=== PATIENT | male | born 1985 | race Caucasian/White ===

== ENCOUNTER 2023-09-10 12:45 | Outpatient (AMB) | payer MEDICARE, MEDICAID, SELFPAY ==
[2023-09-10 12:55] VITALS: BMI 43.6
--- NOTE | 2023-09-10 12:55 | A.OFFVIS_ITS ---
Intake VS Expanded 09/10/23 12:55 09/19/23 12:56 Height 5 ft 9 in 5 ft 9 in Weight 294 lb 15.656 oz 295 lb BMI 43.6 43.6 Intake Visit Reasons: Obesity, DM Allergies cat dander [CATS] Allergy (Unknown, Unverified 07/27/20 17:35) RASH HPI Nutrition Presentation Details Pt present for MNT for T2DM and obesity. The Pt reports he was referred by ARABELLA Rosen from [facility]. Pt reports he has T2DM and is on metformin . Pt reports he is on the highest dose. 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., Pt reports that in the past he was trying very low carb diets for a short period of time but in general he wants to make healthier food choices and learn to balance meals Beverages: tea/soda/juices Typical meal b: waffles, fruits or almond , walnuts/dates/seed, black coffee or with cream and sugar, apple juice L: 2 x banquet frozen dinner or McChicken mc donalds, orange soda or chefboyardeee 1- 4 or up to 7 pm works dinner: patties chicken breast with peanut butter, sloppy randi or lasagna , or Cesear salad with chicken , soda physical activity: daily life activities ETOH: some smoking denies BG record: 14 d bg average at 190, Pt monitoring in the fasting state, lowest bg at 174 and highest at 250 WZH-Zamtcbi-Kq.Jeor Equation Height 5 ft 9 in Weight 295 lb Resting Metabolic Rate 2245.25 Calculated Activity Level Sedentary Calories Needed to Maintain Weight 2694.30 Diagnosis Nutrition problem #1 excessive energy intake As related to (etiology) #1 diagnosis As evidenced by (sign/symptom) #1 food recall and knowledge deficit of diet Monitoring/Goals Nutrition problem monitoring level of knowledge/skill, total CHO intake and weight Nutrition goal/outcome list 3 CHO foods and wt loss 5lbs in 2 months Outcome progress verbalized understanding Learning/Education Readiness to learn good Stages of change preparation Educational materials provided Yes (meal planning/healthy plate method) Most Recent Diabetes Results: No Data to Display Assessment & Plan Assessment & Plan (1) Morbid obesity with BMI of 45.0-49.9, adult: Code(s): E66.01 - Morbid (severe) obesity due to excess calories; Z68.42 - Body mass index [BMI] 45.0-49.9, adult Plan: wt: 134 kg Est kcal needs as per MSJ: 2700 (40% carb, 30% protein/fat) Est fluid needs as per 25-30 ml/d: 1184-8817 Est prot per day as per 1 g/kg bw: 134 Recommend fiber intake : 8-10 g per day and gradually increase to 25-28 g per day for women and 35-38 g for men or as tolerated Recommend sodium intake per day : less than 2000 mg Educated patient on: ( R = reviewed V = verbalizes understanding N/R = needs review N/A = not applicable * Food sources of carbohydrate, adequate serving sizes and its role in various health conditions: R * Differences between complex carbohydrates a simple carbohydrates, role of fiber in diet: R * lean protein foods: R * Differences between types of fats and role in diet (mono on saturated fat fatty acids, saturated fatty acids, trans fats): R basic * Food sources of sodium in salt and healthy modifications for heart health in kidney health: NR * Vitamins and minerals: R * Healthy plate method concept: R * Physical activity: Benefits a precaution: R * Hypoglycemia protocol (rule of 15): NR * Dietary prevention of Hyperglycemia: R Patient Instructions: Reduce on total carb to less than 90 g at a meal Have no sugar containing beverages Abstain from alcohol consumption monitor your blood sugar 2 hours after your last meal Coding Level of Care Code Nutr Indiv Intake (86840) Diagnoses Morbid obesity with BMI of 45.0-49.9, adult E66.01; Z68.42 Time Spent (min) 30
[2023-09-19 12:56] VITALS: BMI 43.6
== END 2023-09-10 13:46 | disposition home or self-care (01) ==
PROVIDERS: PCP Internal Medicine; Visit Provider Dietitian, Registered
DX: E66.01 Morbid (severe) obesity due to excess calories (principal); Z68.42 Body mass index [BMI] 45.0-49.9, adult

== ENCOUNTER → 2023-09-10 12:45 | Outpatient (BNVA) | payer MEDICARE, MEDICAID, SELFPAY | PROVIDERS: PCP Internal Medicine; Visit Provider Dietitian, Registered | DX: E66.01 Morbid (severe) obesity due to excess calories (principal); Z68.41 Body mass index [BMI] 40.0-44.9, adult; E11.9 Type 2 diabetes mellitus without complications; Z71.3 Dietary counseling and surveillance | CPT/HCPCS: 97802 ==

== ENCOUNTER 2024-09-29 00:35 | Emergency (ER) | payer MEDICARE, MEDICAID, SELFPAY ==
[2024-09-29 00:39] VITALS: BP 149/100; PULSE 92; RESP 20; TEMP 36.4; O2SAT 97; BMI 44.3
[2024-09-29 01:35] LABS: Alanine Aminotransferase 58 U/L (0-40); Albumin Level 4.7 g/dL (3.5-5.0); Alkaline Phosphatase 98 U/L (39-117); Anion Gap 18 (12-20); Aspartate Amino Transferase 44 U/L (5-37); Bilirubin Total 0.3 mg/dL (0.0-1.0); Blood Urea Nitrogen 9 mg/dL (9-16); Calcium 10.3 mg/dL (8.4-10.2); Carbon Dioxide 22 mmol/L (22-29); Chloride 100 mmol/L (96-108); Creatinine Clr Calc Pharmacy 152.8; Estimated Glomerular Filt Rate > 60; Ethanol < 10 mg/dL; Glucose Random 261 mg/dL (60-115); Sodium 136 mmol/L (135-145); Total Protein 7.8 g/dL (6.5-8.0)
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
--- NOTE | 2024-09-29 01:44 | ED.GENADULT ---
HPI - General Adult General Chief complaint: General Medical Stated complaint: lower back pain Time Seen by Provider: 09/29/24 01:36 Source: patient Mode of arrival: ambulatory Limitations: no limitations History of Present Illness ED Provider: sanaz MIRANDA narrative: Patient's history of schizophrenia disorder, OCD, depression, anxiety increased stress with chronic low back pain comes here with multiple problems including back pain and asking for help for his increased emotional stress and the back pain no recent injury no radiation of the pain to the lower extremity no bladder or bowel involvement Related Data Allergies Allergy/AdvReac Type Severity Reaction Status Date / Time cat dander [CATS] Allergy Unknown RASH Verified 09/29/24 00:44 Review of Systems Review of Systems: Yes all other systems are reviewed and are negative [facility] Social History Social History Alcohol intake: current Alcohol intake frequency: holidays/special occasions only Smoked in Last 30 Days: No Use of substances other than those prescribed or required for medical reasons: No Advance Directives: No Physical Exam ED Vital Signs: Vital Signs - 24 hr 09/29/24 00:39 Temperature 97.5 F Pulse Rate 92 Respiratory Rate 20 Blood Pressure 149/100 H Pulse Oximetry 97 Oxygen Delivery Method Room Air BMI result Body Mass Index 44.3 Appearance: Alert. Oriented X3. No acute distress. Eyes: PERRLA, No Nystagmus ENT: Pharynx normal. Oral Mucosa moist Neck: Normal inspection. Neck supple. CVS: Normal heart rate and rhythm. Pulses normal. Respiratory: No respiratory distress. Equal air entry bilateral, no wheezing/rales/rhonchi Abdomen: Soft and nontender. Bowel sounds are present, no mass palpable, no CVA tenderness Skin: Skin warm and dry. Normal skin color. Normal skin turgor. Extremities: No lower extremity edema. No calf tenderness psych: Feel depressed stressed out no current suicidal or homicidal ideation Neuro: Oriented X 3. No motor deficit. No sensory deficit.No cerebellar signs , cranial nerves II-XII intact Medications Administered Discontinued Medications Generic Name Dose Route Start Last Admin Trade Name Freq PRN Reason Stop Dose Admin Ibuprofen 600 mg 09/29/24 01:43 09/29/24 02:48 Ibuprofen 600 Mg Tablet PO 09/29/24 01:44 600 mg ONCE ONE Administration Lorazepam 2 mg 09/29/24 01:43 09/29/24 02:48 Lorazepam 1 Mg Tablet PO 09/29/24 01:44 2 mg ONCE ONE Administration Medical Decision Making Medical Decision Making MDM Narrative: Patient has schizoaffective disorder with depression increased stress will get care team involved for evaluation Lab Data [facility] Lab Attestation statement: I reviewed the patient's lab results. 09/29/24 01:39 09/29/24 01:08 Labs: Lab Results 09/29/24 09/29/24 09/29/24 Range/Units 01:08 01:13 01:39 WBC 9.3 (4.8-10.8) X10*3/uL RBC 4.77 (4.60-5.80) X10*6/uL Hgb 14.1 (14.0-18.0) g/dl Hct 39.1 L (42.0-52.0) % MCV 82.0 (80.0-98.0) fL MCH 29.6 (27.0-33.0) pg MCHC 36.1 H (31.0-36.0) g/dl RDW 12.4 (11.0-16.0) % Plt Count 252 (160-400) X10*3/uL MPV 9.6 (9.4-12.4) fL Immature Gran % (Auto) 1.7 H (0.0-0.4) % Neut % (Auto) 51.1 (45-73) % Lymph % (Auto) 37.9 (20-40) % [place] % (Auto) 6.1 (2-11) % Eos % (Auto) 2.8 (0-4) % Baso % (Auto) 0.4 (0-2) % Lymph # (Auto) 3.5 (1.2-4.9) X10*3/uL [place] # (Auto) 0.6 (0.1-1.2) X10*3/uL Eos # (Auto) 0.3 (0.0-0.4) X10*3/uL Baso # (Auto) 0.0 (0.0-0.2) X10*3/uL Abs Immat Gran (auto) 0.16 H (0.00-0.03) X10*3/uL Absolute Neuts (auto) 4.7 (2.0-8.3) x10*3/uL Absolute Nucleated RBC 0.000 (0.0-0.012) X10*3/uL Nucleated RBC % (auto) 0.0 (0.0-0.2) /100WBC Sodium 136 (135-145) mmol/L Potassium 4.0 (3.3-5.1) mmol/L Chloride 100 (96-108) mmol/L Carbon Dioxide 22 (22-29) mmol/L Anion Gap 18 (12-20) BUN 9 (9-16) mg/dL Creatinine 0.88 (0.5-1.4) mg/dL Estim Creat Clear Calc 152.8 Estimated GFR > 60 POC Glucose (60-115) mg/dL Random Glucose 261 H (60-115) mg/dL Calcium 10.3 H (8.4-10.2) mg/dL Total Bilirubin 0.3 (0.0-1.0) mg/dL AST 44 H (5-37) U/L ALT 58 H (0-40) U/L Alkaline Phosphatase 98 (39-117) U/L Total Protein 7.8 (6.5-8.0) g/dL Albumin 4.7 (3.5-5.0) g/dL Urine Color Yellow Urine Appearance Clear Urine pH 6.0 (5.0-9.0) Ur Specific [place] >= 1.030 H (1.005-1.025) Urine Protein 30 (1+) H (Neg-Trace) mg/dL Urine Glucose (UA) >=1000 H (Negative) mg/dL Urine Ketones Trace (Negative) mg/dL Urine Blood Negative (Negative) Urine Nitrite Negative (Negative) Ur Leukocyte Esterase Negative (Negative) Urine RBC 0-2 (0-2) /HPF Urine WBC 0-5 (0-5) /HPF Ur Squamous Epith Cells 0-2 (0-2) /HPF Calcium Oxalate Crystal Present Urine Bacteria None Seen (None Seen) Hyaline Casts 0-2 (0-2) /LPF Urine Opiates Screen Not Detected (Not Detect) Ur Buprenorphine Scrn Not Detected (Not Detect) ng/mL Ur Oxycodone Screen Not Detected (Not Detect) ng/mL Urine Methadone Screen Not Detected (Not Detect) ng/mL Urine Fentanyl Screen Not Detected (Not Detect) Ur Barbiturates Screen Not Detected (Not Detect) Ur Phencyclidine Scrn Not Detected (Not Detect) Ur Amphetamines Screen Not Detected (Not Detect) U Benzodiazepines Scrn Not Detected (Not Detect) Urine Cocaine Screen Not Detected (Not Detect) U Marijuana (THC) Screen Not Detected (Not Detect) Ethyl Alcohol < 10 mg/dL 09/29/24 Range/Units 04:44 WBC (4.8-10.8) X10*3/uL RBC (4.60-5.80) X10*6/uL Hgb (14.0-18.0) g/dl Hct (42.0-52.0) % MCV (80.0-98.0) fL MCH (27.0-33.0) pg MCHC (31.0-36.0) g/dl RDW (11.0-16.0) % Plt Count (160-400) X10*3/uL MPV (9.4-12.4) fL Immature Gran % (Auto) (0.0-0.4) % Neut % (Auto) (45-73) % Lymph % (Auto) (20-40) % [place] % (Auto) (2-11) % Eos % (Auto) (0-4) % Baso % (Auto) (0-2) % Lymph # (Auto) (1.2-4.9) X10*3/uL [place] # (Auto) (0.1-1.2) X10*3/uL Eos # (Auto) (0.0-0.4) X10*3/uL Baso # (Auto) (0.0-0.2) X10*3/uL Abs Immat Gran (auto) (0.00-0.03) X10*3/uL Absolute Neuts (auto) (2.0-8.3) x10*3/uL Absolute Nucleated RBC (0.0-0.012) X10*3/uL Nucleated RBC % (auto) (0.0-0.2) /100WBC Sodium (135-145) mmol/L Potassium (3.3-5.1) mmol/L Chloride (96-108) mmol/L Carbon Dioxide (22-29) mmol/L Anion Gap (12-20) BUN (9-16) mg/dL Creatinine (0.5-1.4) mg/dL Estim Creat Clear Calc Estimated GFR POC Glucose 219 H (60-115) mg/dL Random Glucose (60-115) mg/dL Calcium (8.4-10.2) mg/dL Total Bilirubin (0.0-1.0) mg/dL AST (5-37) U/L ALT (0-40) U/L Alkaline Phosphatase (39-117) U/L Total Protein (6.5-8.0) g/dL Albumin (3.5-5.0) g/dL Urine Color Urine Appearance Urine pH (5.0-9.0) Ur Specific [place] (1.005-1.025) Urine Protein (Neg-Trace) mg/dL Urine Glucose (UA) (Negative) mg/dL Urine Ketones (Negative) mg/dL Urine Blood (Negative) Urine Nitrite (Negative) Ur Leukocyte Esterase (Negative) Urine RBC (0-2) /HPF Urine WBC (0-5) /HPF Ur Squamous Epith Cells (0-2) /HPF Calcium Oxalate Crystal Urine Bacteria (None Seen) Hyaline Casts (0-2) /LPF Urine Opiates Screen (Not Detect) Ur Buprenorphine Scrn (Not Detect) ng/mL Ur Oxycodone Screen (Not Detect) ng/mL Urine Methadone Screen (Not Detect) ng/mL Urine Fentanyl Screen (Not Detect) Ur Barbiturates Screen (Not Detect) Ur Phencyclidine Scrn (Not Detect) Ur Amphetamines Screen (Not Detect) U Benzodiazepines Scrn (Not Detect) Urine Cocaine Screen (Not Detect) U Marijuana (THC) Screen (Not Detect) Ethyl Alcohol mg/dL Discharge Plan Discharge Clinical Impression: Schizoaffective disorder, Major depression Patient Disposition: Still a Patient Print Language: St Helen[place]
[2024-09-29 01:45] LABS: Basophils Percent Auto 0.4 % (0-2); Eosinophils Absolute Auto 0.3 X10*3/uL (0.0-0.4); Eosinophils Percent Auto 2.8 % (0-4); Hematocrit 39.1 % (42.0-52.0); Hemoglobin 14.1 g/dl (14.0-18.0); Imm Gran Abs Auto 0.16 X10*3/uL (0.00-0.03); Imm Gran Pct Auto 1.7 % (0.0-0.4); Lymphocytes Absolute Auto 3.5 X10*3/uL (1.2-4.9); Lymphocytes Percent Auto 37.9 % (20-40); Mean Corpuscular HGB Conc 36.1 g/dl (31.0-36.0); Mean Corpuscular Hemoglobin 29.6 pg (27.0-33.0); Mean Platelet Volume 9.6 fL (9.4-12.4); Monocytes Absolute Auto 0.6 X10*3/uL (0.1-1.2); Monocytes Percent Auto 6.1 % (2-11); Neutrophils Absolute Auto 4.7 x10*3/uL (2.0-8.3); Neutrophils Percent Auto 51.1 % (45-73); Platelet Count 252 X10*3/uL (160-400); Red Blood Count 4.77 X10*6/uL (4.60-5.80); Red Cell Distribution Width 12.4 % (11.0-16.0); White Blood Count 9.3 X10*3/uL (4.8-10.8)
[2024-09-29 01:46] LABS: Appearance Urine Clear; Color Urine Yellow; Glucose Urine UA >=1000 mg/dL (Negative); Leukocyte Esterase Urine Negative (Negative); Nitrite Urine Negative (Negative); Specific Gravity - Urine >= 1.030 (1.005-1.025); UMIC TRIGGER UACC YES; Urine Blood Negative (Negative); Urine Ketones Trace mg/dL (Negative); Urine Protein 30 (1+) mg/dL (Neg-Trace)
[2024-09-29 01:52] LABS: MANUAL DIFF FLAG NO
[2024-09-29 01:58] LABS: Amphetamine Screen Urine Not Detected (Not Detect); Barbiturates, Urine Not Detected (Not Detect); Benzodiazepines Screen Urine Not Detected (Not Detect); Buprenorphine Scr Not Detected (Not Detect); Cannabinoid Screen Urine Not Detected (Not Detect); Cocaine Screen Urine Not Detected (Not Detect); Fentanyl, urine Not Detected (Not Detect); Methadone Screen, Urine Not Detected (Not Detect); Opiate Screen Urine Not Detected (Not Detect); Oxycodone Screen Urine Not Detected (Not Detect); Phencyclidine Screen Urine Not Detected (Not Detect)
[2024-09-29 02:03] LABS: Bacteria Urine None Seen (None Seen); Calcium Oxalate Crystals Urine Present; Hyaline Casts Urine 0-2 /LPF (0-2); RBC Urine 0-2 /HPF (0-2); Squamous Epithelial Cell Urine 0-2 /HPF (0-2); WBC Urine 0-5 /HPF (0-5)
--- NOTE | 2024-09-29 02:44 | PC.NURSE ---
PT is unsure of his medications including names and dosag. He reports he has a visiting nurse daily to administer morning meds and pack night meds. PT is unsure of the company, but is supported by [facility] through [facility].
[2024-09-29] MEDS: LORazepam 1 MG TABLET 2 MG PO (02:48)
[2024-09-29] MEDS: Ibuprofen 600 MG TABLET PO (02:48)
[2024-09-29 04:47] LABS: Glucose, Whole Blood 219 mg/dL (60-115)
[2024-09-29 08:00] VITALS: BP 150/102; PULSE 97; RESP 16; TEMP 37.1; O2SAT 98
--- NOTE | 2024-09-29 08:43 | PC.NURSE ---
patient is awake and alert, ate breakfast this morning, talked with staff. patient ambulates with steady gait. patient is polite and calm, resting quietly in room
== END 2024-09-29 10:57 | disposition home or self-care (01) ==
PROVIDERS: Emergency Provider Internal Medicine; PCP Internal Medicine
DX: F32.3 Major depressive disorder, single episode, severe with psychotic features (principal); F41.9 Anxiety disorder, unspecified; M54.50 Low back pain, unspecified; Z73.3 Stress, not elsewhere classified; Z79.899 Other long term (current) drug therapy
CPT/HCPCS: 36415; 80053; 80307; 81001; 82947; 85025; 99285; S9485

== ENCOUNTER 2025-01-18 22:34 | Inpatient (IN) | payer MEDICARE, MEDICAID, SELFPAY ==
[2025-01-18 22:43] VITALS: BP 123/80; BP 138/88; PULSE 111; PULSE 120; RESP 18; TEMP 36.4; O2SAT 96; BMI 35.9
[2025-01-18 23:11] LABS: Appearance Urine Clear; Color Urine Yellow; Glucose Urine UA >=1000 mg/dL (Negative); Leukocyte Esterase Urine Negative (Negative); Nitrite Urine Negative (Negative); Specific Gravity - Urine >= 1.030 (1.005-1.025); UMIC TRIGGER UACC YES; Urine Blood Negative (Negative); Urine Ketones 15 mg/dL (Negative); Urine Protein Negative (Neg-Trace)
[2025-01-18 23:16] LABS: Bacteria Urine None Seen (None Seen); Hyaline Casts Urine 0-2 /LPF (0-2); RBC Urine 0-2 /HPF (0-2); Squamous Epithelial Cell Urine 0-2 /HPF (0-2); WBC Urine 0-5 /HPF (0-5)
[2025-01-18 23:25] LABS: Amphetamine Screen Urine Not Detected (Not Detect); Barbiturates, Urine Not Detected (Not Detect); Benzodiazepines Screen Urine Not Detected (Not Detect); Buprenorphine Scr Not Detected (Not Detect); Cannabinoid Screen Urine Not Detected (Not Detect); Cocaine Screen Urine Not Detected (Not Detect); Fentanyl, urine Not Detected (Not Detect); Methadone Screen, Urine Not Detected (Not Detect); Opiate Screen Urine Not Detected (Not Detect); Oxycodone Screen Urine Not Detected (Not Detect); Phencyclidine Screen Urine Not Detected (Not Detect)
[2025-01-18 23:28] LABS: MANUAL DIFF FLAG NO
[2025-01-18 23:29] LABS: Basophils Percent Auto 0.4 % (0-2); Eosinophils Absolute Auto 0.2 X10*3/uL (0.0-0.4); Eosinophils Percent Auto 2.1 % (0-4); Hematocrit 40.6 % (42.0-52.0); Hemoglobin 14.8 g/dl (14.0-18.0); Lymphocytes Absolute Auto 3.4 X10*3/uL (1.2-4.9); Lymphocytes Percent Auto 33.8 % (20-40); Mean Corpuscular HGB Conc 36.5 g/dl (31.0-36.0); Mean Corpuscular Hemoglobin 29.7 pg (27.0-33.0); Mean Corpuscular Volume 81.4 fL (80.0-98.0); Mean Platelet Volume 9.3 fL (9.4-12.4); Monocytes Absolute Auto 0.6 X10*3/uL (0.1-1.2); Monocytes Percent Auto 6.1 % (2-11); Neutrophils Absolute Auto 5.7 x10*3/uL (2.0-8.3); Neutrophils Percent Auto 56.6 % (45-73); Platelet Count 244 X10*3/uL (160-400); Red Blood Count 4.99 X10*6/uL (4.60-5.80); White Blood Count 10.1 X10*3/uL (4.8-10.8)
[2025-01-18 23:46] LABS: Alanine Aminotransferase 53 U/L (0-40); Albumin Level 4.6 g/dL (3.5-5.0); Alkaline Phosphatase 92 U/L (39-117); Anion Gap 17 (12-20); Aspartate Amino Transferase 35 U/L (5-37); Bilirubin Total 0.4 mg/dL (0.0-1.0); Blood Urea Nitrogen 10 mg/dL (9-16); Calcium 9.9 mg/dL (8.4-10.2); Carbon Dioxide 18 mmol/L (22-29); Chloride 105 mmol/L (96-108); Estimated Glomerular Filt Rate > 60; Ethanol < 10 mg/dL; Glucose Random 207 mg/dL (60-115); Potassium 3.9 mmol/L (3.3-5.1); Sodium 136 mmol/L (135-145); Total Protein 7.7 g/dL (6.5-8.0)
--- NOTE | 2025-01-19 | ECG_ITS ---
Test Reason : rule out prolonged QTC Blood Pressure : */* mmHG Vent. Rate : 101 BPM Atrial Rate : 101 BPM P-R Int : 160 ms QRS Dur : 82 ms QT Int : 352 ms P-R-T Axes : 48 -22 16 degrees QTcB Int : 456 ms Sinus tachycardia Otherwise normal ECG When compared with ECG of 08-Jan-2010 11:14, No significant changes seen Referred By: Joanne Hernandez Electronically Signed By: CHANDLER ARTEAGA
[2025-01-19 00:03] VITALS: BP 123/80; PULSE 111; RESP 18; TEMP 36.4; O2SAT 96
--- NOTE | 2025-01-19 03:47 | ED_ITS ---
HPI - Psych General Chief Complaint: Psychiatric Symptoms Stated Complaint: section 8 ,si Time Seen by Provider: 01/19/25 00:28 Source: patient Limitations: no limitations History of Present Illness ED Provider: Leny Joseph PA-C HPI Narrative: 39-year-old male with a history of schizoaffective disorder, presents with SI. Patient was assessed by [facility] in the community, he presents to the emergency department voluntarily. The patient admits he has a plan to jump off a bridge. Patient states he has had increase psychosocial stressors involving the break up with the his significant other. Related Data Allergies Allergy/AdvReac Type Severity Reaction Status Date / Time cat dander [CATS] Allergy Unknown RASH Verified 01/18/25 22:47 Review of Systems 2 Review of Systems: Yes all other systems are reviewed and are negative Constitutional: Constitutional: Denies fatigue and Denies fever(s) Cardiovascular: Cardiovascular: Denies chest pain and Denies dyspnea Respiratory: Respiratory: Denies dyspnea Gastrointestinal: Gastrointestinal: Denies abdominal pain, Denies nausea and Denies vomiting Endocrine: Endocrine: Denies fatigue PMF Past Medical History Attestation statement: The following information was validated with the patient. Social History Social History Alcohol intake: current Alcohol intake frequency: holidays/special occasions only Smoked in Last 30 Days: No Use of substances other than those prescribed or required for medical reasons: Yes Substance Use Type: Marijuana Substance Use Frequency: Occasionally Advance Directives: No Do you have a plan to hurt others: No Plan Physical Exam 2 Vital Signs: Vital Signs: Last Vital Signs Temp 97.6 F 01/19/25 00:03 Pulse 111 H 01/19/25 00:03 Resp 18 01/19/25 00:03 BP 123/80 01/19/25 00:03 Pulse Ox 96 01/19/25 00:03 O2 Del Method Room Air 01/19/25 00:03 BMI result Body Mass Index 35.9 Const: Other: Alert Orientation/consciousness: patient oriented x3 Resp: Effort & Inspection: normal respiratory effort Cardio: Other: Normal peripheral perfusion Skin: Other: Warm dry no rash Neuro: General: patient oriented x3, gait normal, no focal motor deficits and CN's II-XI intact bilaterally Psych: Other: For operative Medical Decision Making Medical Decision Making MDM Narrative: 39-year-old male with a history of schizoaffective disorder, presents with SI. Patient was assessed by [facility] in the community, he presents to the emergency department voluntarily. The patient admits he has a plan to jump off a bridge. Patient states he has had increase psychosocial stressors involving the break up with the his significant other. Problem: Psychiatric illness History: Per patient I have considered the following differential diagnoses: SI, HI, decompensated psychiatric illness, drug/alcohol intoxication Plan: The patient will be referred by the behavioral health team, I foresee him being a bed search. Screening labs including serum ethanol drug screen we will be obtained I have independently reviewed the following tests: Labs: No leukocytosis, not anemic, no electrolyte abnormality drug screen negative, ethanol negative Lab Data 01/18/25 23:20 01/18/25 23:20 Labs: Lab Results 01/18/25 01/18/25 Range/Units 22:57 23:20 WBC 10.1 (4.8-10.8) X10*3/uL RBC 4.99 (4.60-5.80) X10*6/uL Hgb 14.8 (14.0-18.0) g/dl Hct 40.6 L (42.0-52.0) % MCV 81.4 (80.0-98.0) fL MCH 29.7 (27.0-33.0) pg MCHC 36.5 H (31.0-36.0) g/dl RDW 13.0 (11.0-16.0) % Plt Count 244 (160-400) X10*3/uL MPV 9.3 L (9.4-12.4) fL Immature Gran % (Auto) 1.0 H (0.0-0.4) % Neut % (Auto) 56.6 (45-73) % Lymph % (Auto) 33.8 (20-40) % [place] % (Auto) 6.1 (2-11) % Eos % (Auto) 2.1 (0-4) % Baso % (Auto) 0.4 (0-2) % Lymph # (Auto) 3.4 (1.2-4.9) X10*3/uL [place] # (Auto) 0.6 (0.1-1.2) X10*3/uL Eos # (Auto) 0.2 (0.0-0.4) X10*3/uL Baso # (Auto) 0.0 (0.0-0.2) X10*3/uL Abs Immat Gran (auto) 0.10 H (0.00-0.03) X10*3/uL Absolute Neuts (auto) 5.7 (2.0-8.3) x10*3/uL Absolute Nucleated RBC 0.000 (0.0-0.012) X10*3/uL Nucleated RBC % (auto) 0.0 (0.0-0.2) /100WBC Sodium 136 (135-145) mmol/L Potassium 3.9 (3.3-5.1) mmol/L Chloride 105 (96-108) mmol/L Carbon Dioxide 18 L (22-29) mmol/L Anion Gap 17 (12-20) BUN 10 (9-16) mg/dL Creatinine 0.82 (0.5-1.4) mg/dL Estim Creat Clear Calc 151.0 Estimated GFR > 60 Random Glucose 207 H (60-115) mg/dL Calcium 9.9 (8.4-10.2) mg/dL Total Bilirubin 0.4 (0.0-1.0) mg/dL AST 35 (5-37) U/L ALT 53 H (0-40) U/L Alkaline Phosphatase 92 (39-117) U/L Total Protein 7.7 (6.5-8.0) g/dL Albumin 4.6 (3.5-5.0) g/dL Urine Color Yellow Urine Appearance Clear Urine pH 5.0 (5.0-9.0) Ur Specific [place] >= 1.030 H (1.005-1.025) Urine Protein Negative (Neg-Trace) mg/dL Urine Glucose (UA) >=1000 H (Negative) mg/dL Urine Ketones 15 (Negative) mg/dL Urine Blood Negative (Negative) Urine Nitrite Negative (Negative) Ur Leukocyte Esterase Negative (Negative) Urine RBC 0-2 (0-2) /HPF Urine WBC 0-5 (0-5) /HPF Ur Squamous Epith Cells 0-2 (0-2) /HPF Urine Bacteria None Seen (None Seen) Hyaline Casts 0-2 (0-2) /LPF Urine Opiates Screen Not Detected (Not Detect) Ur Buprenorphine Scrn Not Detected (Not Detect) ng/mL Ur Oxycodone Screen Not Detected (Not Detect) ng/mL Urine Methadone Screen Not Detected (Not Detect) ng/mL Urine Fentanyl Screen Not Detected (Not Detect) Ur Barbiturates Screen Not Detected (Not Detect) Ur Phencyclidine Scrn Not Detected (Not Detect) Ur Amphetamines Screen Not Detected (Not Detect) U Benzodiazepines Scrn Not Detected (Not Detect) Urine Cocaine Screen Not Detected (Not Detect) U Marijuana (THC) Screen Not Detected (Not Detect) Ethyl Alcohol < 10 mg/dL Discharge Plan Discharge Clinical Impression: Suicidal ideation Patient Disposition: Still a Patient Interventions: Hubbard-Suicide Risk Severity Scale Last Done: 01/19/25 00:03 Print Language: Icelandic
--- NOTE | 2025-01-19 05:15 | PC.NURSE ---
Late entry- Called [facility] for med list, awaiting fax.
--- NOTE | 2025-01-19 06:14 | PC.NURSE ---
Rec'd notification from [facility] that [facility] called reporting they are having trouble faxing med list to main ED however they have Care team fax number and will fax there.
--- NOTE | 2025-01-19 06:36 | PC.NURSE ---
Addendum entered by Laurie Sy Adelia 01/19/25 06:39: spoke with Gi at [facility], she will work on sending complete med list. will fax to care team Original Note: rec'd med list from [facility]. List not complete does not include frequency
[2025-01-19 09:54] VITALS: BP 114/84; PULSE 94; RESP 16; TEMP 36.6; O2SAT 98
[2025-01-19] MEDS: OXcarbazepine 300 MG TABLET PO ×2 (11:09→21:53)
[2025-01-19] MEDS: Paliperidone ER 6 MG TAB.ER.24 PO (11:09)
[2025-01-19] MEDS: Fenofibrate 54 MG TABLET PO (11:09)
[2025-01-19] MEDS: Propranolol HCL 10 MG TABLET 30 MG PO (11:09)
[2025-01-19] MEDS: lisinopriL 10 MG TABLET PO (11:09)
[2025-01-19] MEDS: metFORMIN HCl ER 500 MG TAB.ER.24H 1000 MG PO ×2 (11:09→17:27)
--- NOTE | 2025-01-19 11:12 | MHC.CARE ---
Pt will be an inpatient psychiatric bedsearch
[2025-01-19] MEDS: Empagliflozin 25 MG TABLET PO (13:42)
[2025-01-19 15:05] VITALS: BP 125/71; PULSE 100; TEMP 36.4; O2SAT 98; BMI 40.6
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
[2025-01-19 20:00] VITALS: BP 138/72; PULSE 110; RESP 16; TEMP 36.4; O2SAT 97
[2025-01-19] MEDS: Atorvastatin Calcium 40 MG TABLET PO (21:53)
[2025-01-19] MEDS: OLANZapine 5 MG TABLET PO (22:07)
[2025-01-19] MEDS: traZODone HCL 50 MG TABLET PO (22:07)
--- NOTE | 2025-01-20 01:53 | PC.NURSE ---
Pt endorses SI with no plan but states I will jump off the bridge if d/c from here.
[2025-01-20 07:00] VITALS: BMI 40.9
[2025-01-20 07:55] LABS: Estimated Average Glucose 255 mg/dL; Hemoglobin A1c % 10.5 % (<6.0)
[2025-01-20 08:00] VITALS: BP 173/93; PULSE 106; RESP 20; TEMP 36.4; O2SAT 98
[2025-01-20 08:09] LABS: Cholesterol 224 mg/dL (<200); HDL Cholesterol 31 mg/dL (>40); Magnesium 2.1 mg/dL (1.6-2.6); Triglycerides 627 mg/dL (<150)
[2025-01-20 08:26] LABS: Free T4 (Free Thyroxine) 0.92 ng/dL (0.71-1.85); Thyroid Stimulating Hormone 2.28 uIU/mL (0.32-4.0)
[2025-01-20 08:36] LABS: Vitamin B12 398 pg/mL (200-900)
[2025-01-20] MEDS: Paliperidone ER 6 MG TAB.ER.24 PO (08:46)
[2025-01-20] MEDS: metFORMIN HCl ER 500 MG TAB.ER.24H 1000 MG PO ×2 (08:46→16:02)
[2025-01-20] MEDS: Fenofibrate 54 MG TABLET PO (08:47)
[2025-01-20] MEDS: lisinopriL 10 MG TABLET PO (08:47)
[2025-01-20] MEDS: Empagliflozin 25 MG TABLET PO (08:47)
[2025-01-20] MEDS: Propranolol HCL 10 MG TABLET 30 MG PO (08:48)
[2025-01-20] MEDS: Escitalopram Oxalate 20 MG TABLET PO (09:10)
[2025-01-20] MEDS: OXcarbazepine 300 MG TABLET PO ×2 (09:11→20:38)
[2025-01-20 09:32] VITALS: BP 137/78; PULSE 120
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
[2025-01-20 19:57] VITALS: BP 128/80; PULSE 121; RESP 15; TEMP 36.1; O2SAT 98
[2025-01-20] MEDS: OLANZapine 5 MG TABLET PO (20:38)
[2025-01-20] MEDS: traZODone HCL 50 MG TABLET PO (20:38)
[2025-01-20] MEDS: Atorvastatin Calcium 40 MG TABLET PO (20:38)
[2025-01-21 08:00] VITALS: BP 142/84; PULSE 92; TEMP 36.3; O2SAT 98
[2025-01-21] MEDS: Acetaminophen 325 MG TABLET 650 MG PO ×2 (08:50→14:57)
[2025-01-21] MEDS: OLANZapine 5 MG TABLET PO ×2 (08:50→22:48)
[2025-01-21] MEDS: Propranolol HCL 10 MG TABLET 30 MG PO (08:50)
[2025-01-21] MEDS: lisinopriL 10 MG TABLET PO (08:51)
[2025-01-21] MEDS: OXcarbazepine 300 MG TABLET PO ×2 (08:51→22:39)
[2025-01-21] MEDS: Empagliflozin 25 MG TABLET PO (08:51)
[2025-01-21] MEDS: Paliperidone ER 6 MG TAB.ER.24 PO (08:51)
[2025-01-21] MEDS: Escitalopram Oxalate 20 MG TABLET PO (08:51)
[2025-01-21] MEDS: Fenofibrate 54 MG TABLET PO (08:51)
[2025-01-21] MEDS: metFORMIN HCl ER 500 MG TAB.ER.24H 1000 MG PO ×2 (08:51→17:54)
--- NOTE | 2025-01-21 15:14 | P.PNPSI_ITS ---
Subjective Subjective Date of Service: 01/21/25 Reason For Visit: depression Subjective Notes: Conditional Voluntary Healthcare Proxy: No Guardianship: No Medical Problems Affecting Mental Status: No Interim History: Care discussed with Dr. Hedrick who worked with pt in 2019 and again in 2023. They had discussed a possible trial of Caplyta. Care discussed with pt's father, Lc. Lc reports pt has low self esteem and tells parents often he feels like a failure. Pt estranged himself from family about ~2 years ago and is just reconnecting. Since decrease of Sustenna father agrees that pt has not returned to his baseline. Symptoms have caused estrangement from his sister due to comments he has made to her when symptomatic. Reviewed with Amos. He is interested in a Caplyta trial. Will attempt to order. Discussed A1C results with pt as well. He is willing to make some changes and willing to consult with medicine and nutrition on this issue. Medication Compliance: Yes Side effects from medications: No Attending Groups: Intermittent Review of Systems Acute medical concerns: No Review of Systems Review of Systems Denies Mental Status Exam Mental Status Exam Patient Appearance: Appropriate Patient Orientation: Person, Place, Time and Situation Level of Consciousness: Alert Patient Behavior: Talkative and Good Eye Contact Mood Description: Depressed, Anxious and Apprehensive Affect Description: Anxious and Apprehensive Patient Cognition Impaired: No Ability to Follow Directions: Good Speech Pattern: Spontaneous Speech Memory Description: Episodic Impaired Hallucinations: None Delusions: Not Present Perceptual Disturbances: Depersonalization and Derealization Thought Process: Rumination Thought Content: positive for Circumstantial, positive for Perseveration and positive for Suicidal Ideation Depressive Symptoms: Insomnia, Difficulty Sleeping, Changes in Appetite, Unhappiness and Thoughts of /Suicide Judgement: Fair Diagnostics Vital Signs (24Hr): Vital Signs - 24 hr 01/20/25 19:57 01/21/25 08:00 Temperature 96.9 F 97.3 F Pulse Rate 121 H 92 Respiratory Rate 15 Blood Pressure 128/80 142/84 H Pulse Oximetry 98 98 Oxygen Delivery Method Room Air BMI result Body Mass Index 40.9 Labs 01/18/25 23:20 01/18/25 23:20 Labs: Laboratory Results - last 48 hr 01/20/25 07:26 Estimat Average Glucose 255 Hemoglobin A1c % 10.5 H Magnesium 2.1 Triglycerides 627 H Cholesterol 224 H LDL Cholesterol, Calc TNP HDL Cholesterol 31 L Vitamin B12 398 Folate 14.0 TSH 2.28 Free T4 0.92 Medications Medications Current Medications Acetaminophen (Acetaminophen 325 Mg Tablet) 650 mg PO Q6H PRN PRN Reason: Headache/Pain, Scale 1-10 Last Admin: 01/21/25 14:57 Dose: 650 mg Al Hydroxide/Mg Hydroxide (Magnesium Hydrox/Alum Hydrox 30 Ml Oral.Susp) 30 ml PO Q6H PRN PRN Reason: Heartburn/Nausea Atorvastatin Calcium (Atorvastatin Calcium 40 Mg Tablet) 40 mg PO BEDTIME [facility] Last Admin: 01/20/25 20:38 Dose: 40 mg Empagliflozin (Empagliflozin 25 Mg Tablet) 25 mg PO DAILY [facility] Last Admin: 01/21/25 08:51 Dose: 25 mg Escitalopram Oxalate (Escitalopram Oxalate 20 Mg Tablet) 20 mg PO DAILY [facility] Last Admin: 01/21/25 08:51 Dose: 20 mg Fenofibrate (Fenofibrate 54 Mg Tablet) 54 mg PO DAILY [facility] Last Admin: 01/21/25 08:51 Dose: 54 mg Hydroxyzine HCl (Hydroxyzine Hcl 25 Mg Tablet) 25 mg PO Q6H PRN PRN Reason: mild anxiety Lisinopril (Lisinopril 10 Mg Tablet) 10 mg PO DAILY [facility]; Protocol Last Admin: 01/21/25 08:51 Dose: 10 mg Magnesium Hydroxide (Milk Of Magnesia 30 Ml Oral.Susp) 30 ml PO DAILY PRN PRN Reason: Constipation Metformin HCl (Met[facility] Hcl Er 500 Mg Tab.[facility].24h) [facility] Last Admin: 01/21/25 08:51 Dose: 1,000 mg Nicotine Polacrilex (Nicotine Polacrilex 2 Mg Gum) 4 mg BUCCAL Q2H PRN PRN Reason: Nicotine Cravings Olanzapine (Olanzapine 5 Mg Tablet) 5 mg PO Q4H PRN PRN Reason: agitation, psychosis Last Admin: 01/21/25 08:50 Dose: 5 mg Oxcarbazepine (Oxcarbazepine 300 Mg Tablet) 300 mg PO BID [facility] Last Admin: 01/21/25 08:51 Dose: 300 mg Paliperidone (Paliperidone Er 6 Mg Tab.Er.24) 6 mg PO DAILY [facility] Last Admin: 01/21/25 08:51 Dose: 6 mg Paliperidone Palmitate (Paliperidone Palmitate 78 Mg/0.5 Ml Syringe) 78 mg IM Q28D [facility] Propranolol HCl (Propranolol Hcl 10 Mg Tablet) 30 mg PO DAILY [facility]; Protocol Last Admin: 01/21/25 08:50 Dose: 30 mg Trazodone HCl (Trazodone Hcl 50 Mg Tablet) 50 mg PO BEDTIME MRX1 PRN PRN Reason: Insomnia Last Admin: 01/20/25 20:38 Dose: 50 mg Allergies Allergies Allergy/AdvReac Type Severity Reaction Status Date / Time cat dander [CATS] Allergy Unknown RASH Verified 01/18/25 22:47 Assessment & Plan Assessment & Plan (1) PTSD (post-traumatic stress disorder): Status: Acute Code(s): F43.10 - Post-traumatic stress disorder, unspecified (2) Schizoaffective disorder: Status: Acute Code(s): F25.9 - Schizoaffective disorder, unspecified Plan Admit, CV, 15 minute checks Collateral Contact Diagnostics as needed Continue current regime Encourage full milieu Discharge planning 01/21:A1c 10.5, Hospitalist consult, Nutrition consult. Will attempt to order Caplyta for a trial, pt request. Reason for continued inpatient stay Substantial Risk for: rapid decompensation Time Spent With Patient Time: Total time managing care of this patient today ____ minutes.
[2025-01-21 20:00] VITALS: RESP 16
[2025-01-21] MEDS: Atorvastatin Calcium 40 MG TABLET PO (22:39)
[2025-01-21] MEDS: traZODone HCL 50 MG TABLET PO (22:48)
[2025-01-22 08:00] VITALS: BP 140/88; PULSE 108; RESP 16; TEMP 36.2; O2SAT 97
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
[2025-01-22] MEDS: Paliperidone ER 6 MG TAB.ER.24 PO (09:49)
[2025-01-22] MEDS: OXcarbazepine 300 MG TABLET PO ×2 (09:49→21:16)
[2025-01-22 09:50] VITALS: BP 140/88; PULSE 108
[2025-01-22] MEDS: metFORMIN HCl ER 500 MG TAB.ER.24H 1000 MG PO ×2 (09:50→17:29)
[2025-01-22] MEDS: Fenofibrate 54 MG TABLET PO (09:50)
[2025-01-22] MEDS: Escitalopram Oxalate 20 MG TABLET PO (09:50)
[2025-01-22] MEDS: Propranolol HCL 10 MG TABLET 30 MG PO (09:50)
[2025-01-22] MEDS: lisinopriL 10 MG TABLET PO (09:50)
[2025-01-22] MEDS: Empagliflozin 25 MG TABLET PO (09:51)
[2025-01-22] MEDS: Acetaminophen 325 MG TABLET 650 MG PO (17:29)
[2025-01-22 20:00] VITALS: BP 129/87; PULSE 112; TEMP 36.4; O2SAT 96
[2025-01-22] MEDS: Atorvastatin Calcium 40 MG TABLET PO (21:16)
[2025-01-22] MEDS: traZODone HCL 50 MG TABLET PO (21:16)
[2025-01-22] MEDS: OLANZapine 5 MG TABLET PO (21:16)
[2025-01-23 08:00] VITALS: BP 164/87; PULSE 112; RESP 16; TEMP 36.2; O2SAT 97
[2025-01-23] MEDS: Paliperidone ER 6 MG TAB.ER.24 PO (08:47)
[2025-01-23] MEDS: metFORMIN HCl ER 500 MG TAB.ER.24H 1000 MG PO ×2 (08:47→17:43)
[2025-01-23] MEDS: Escitalopram Oxalate 20 MG TABLET PO (08:48)
[2025-01-23] MEDS: Propranolol HCL 10 MG TABLET 30 MG PO (08:48)
[2025-01-23] MEDS: Empagliflozin 25 MG TABLET PO (08:49)
[2025-01-23] MEDS: Fenofibrate 54 MG TABLET PO (08:49)
[2025-01-23] MEDS: lisinopriL 10 MG TABLET PO (08:49)
[2025-01-23] MEDS: hydrOXYzine HCL 25 MG TABLET PO ×2 (08:50→17:43)
[2025-01-23] MEDS: OXcarbazepine 300 MG TABLET PO ×2 (08:50→21:21)
[2025-01-23] MEDS: Acetaminophen 325 MG TABLET 650 MG PO ×2 (09:45→17:43)
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
[2025-01-23 19:31] VITALS: BP 128/68; PULSE 104; RESP 15; TEMP 36.3; O2SAT 96
[2025-01-23] MEDS: Atorvastatin Calcium 40 MG TABLET PO (21:21)
[2025-01-23] MEDS: traZODone HCL 50 MG TABLET PO (21:22)
[2025-01-24 07:48] VITALS: BP 172/78; PULSE 106; TEMP 37.1; O2SAT 96
[2025-01-24] MEDS: Fenofibrate 54 MG TABLET PO (08:30)
[2025-01-24] MEDS: OXcarbazepine 300 MG TABLET PO ×2 (08:30→21:30)
[2025-01-24] MEDS: lisinopriL 10 MG TABLET PO (08:30)
[2025-01-24] MEDS: Escitalopram Oxalate 20 MG TABLET PO (08:30)
[2025-01-24] MEDS: metFORMIN HCl ER 500 MG TAB.ER.24H 1000 MG PO ×2 (08:31→16:34)
[2025-01-24] MEDS: Empagliflozin 25 MG TABLET PO (08:31)
[2025-01-24] MEDS: Propranolol HCL 10 MG TABLET 30 MG PO (08:31)
[2025-01-24] MEDS: Paliperidone ER 6 MG TAB.ER.24 PO (08:31)
[2025-01-24] MEDS: hydrOXYzine HCL 25 MG TABLET PO ×2 (09:18→21:30)
[2025-01-24 10:00] VITALS: BP 166/74; PULSE 99
--- NOTE | 2025-01-24 13:17 | HO.PSYCHPN ---
Subjective Subjective Date of Service: 01/24/25 Reason For Visit: depression Subjective Notes: Conditional Voluntary Healthcare Proxy: No Guardianship: No Medical Problems Affecting Mental Status: No Interim History: Caplyta ordered on 01/21. Pt discussed today considering increase in Sustenna. Currently at 78 mg q 3 weeks. Agrees with team that 117 mg gave him improved clarity, however the decrease made me feel more integrated and free. Discussed an interaction on line prior to admission which was hurtful. He told a woman that he was on disability and felt her response was negative and degrading of him. This made me feel worse about myself . I want my family and friends to be proud of me. Medication Compliance: Yes Side effects from medications: No Attending Groups: Yes Review of Systems Acute medical concerns: No Review of Systems Review of Systems Denies Mental Status Exam Mental Status Exam Patient Appearance: Appropriate Patient Orientation: Person, Place, Time and Situation Level of Consciousness: Awake and Alert Patient Behavior: Appropriate, Talkative and Good Eye Contact Mood Description: Calm and Depressed Affect Description: Appropriate and Flat Patient Cognition Impaired: No Ability to Follow Directions: Good Speech Pattern: Clear Memory Description: Intact Hallucinations: None Perceptual Disturbances: Depersonalization and Derealization Thought Process: Intact Thought Content: positive for Intact Depressive Symptoms: Increased Irritability Judgement: Fair Diagnostics Vital Signs (24Hr): Vital Signs - 24 hr 01/23/25 19:31 01/24/25 07:48 Temperature 97.3 F 98.7 F Pulse Rate 104 H 106 H Respiratory Rate 15 Blood Pressure 128/68 172/78 H Pulse Oximetry 96 96 Oxygen Delivery Method Room Air BMI result Body Mass Index 40.9 Labs 01/18/25 23:20 01/25/25 07:39 Medications Medications Current Medications Acetaminophen (Acetaminophen 325 Mg Tablet) 650 mg PO Q6H PRN PRN Reason: Headache/Pain, Scale 1-10 Last Admin: 01/23/25 17:43 Dose: 650 mg Al Hydroxide/Mg Hydroxide (Magnesium Hydrox/Alum Hydrox 30 Ml Oral.Susp) 30 ml PO Q6H PRN PRN Reason: Heartburn/Nausea Atorvastatin Calcium (Atorvastatin Calcium 40 Mg Tablet) 40 mg PO BEDTIME [facility] Last Admin: 01/23/25 21:21 Dose: 40 mg Empagliflozin (Empagliflozin 25 Mg Tablet) 25 mg PO DAILY [facility] Last Admin: 01/24/25 08:31 Dose: 25 mg Escitalopram Oxalate (Escitalopram Oxalate 20 Mg Tablet) 20 mg PO DAILY [facility] Last Admin: 01/24/25 08:30 Dose: 20 mg Fenofibrate (Fenofibrate 54 Mg Tablet) 54 mg PO DAILY [facility] Last Admin: 01/24/25 08:30 Dose: 54 mg Hydroxyzine HCl (Hydroxyzine Hcl 25 Mg Tablet) 25 mg PO Q6H PRN PRN Reason: mild anxiety Last Admin: 01/24/25 09:18 Dose: 25 mg Lisinopril (Lisinopril 10 Mg Tablet) 10 mg PO DAILY [facility]; Protocol Last Admin: 01/24/25 08:30 Dose: 10 mg Magnesium Hydroxide (Milk Of Magnesia 30 Ml Oral.Susp) 30 ml PO DAILY PRN PRN Reason: Constipation Metformin HCl (Metformin Hcl Er 500 Mg Tab.Er.24h) 1,000 mg PO BIDAC [facility] Last Admin: 01/24/25 08:31 Dose: 1,000 mg Nicotine Polacrilex (Nicotine Polacrilex 2 Mg Gum) 4 mg BUCCAL Q2H PRN PRN Reason: Nicotine Cravings Olanzapine (Olanzapine 5 Mg Tablet) 5 mg PO Q4H PRN PRN Reason: agitation, psychosis Last Admin: 01/22/25 21:16 Dose: 5 mg Oxcarbazepine (Oxcarbazepine 300 Mg Tablet) 300 mg PO BID [facility] Last Admin: 01/24/25 08:30 Dose: 300 mg Paliperidone (Paliperidone Er 6 Mg Tab.Er.24) 6 mg PO DAILY [facility] Last Admin: 01/24/25 08:31 Dose: 6 mg Paliperidone Palmitate (Paliperidone Palmitate 78 Mg/0.5 Ml Syringe) 78 mg IM Q28D [facility] Propranolol HCl (Propranolol Hcl 10 Mg Tablet) 30 mg PO DAILY [facility]; Protocol Last Admin: 01/24/25 08:31 Dose: 30 mg Trazodone HCl (Trazodone Hcl 50 Mg Tablet) 50 mg PO BEDTIME MRX1 PRN PRN Reason: Insomnia Last Admin: 01/23/25 21:22 Dose: 50 mg Allergies Allergies Allergy/AdvReac Type Severity Reaction Status Date / Time cat dander [CATS] Allergy Unknown RASH Verified 01/18/25 22:47 Assessment & Plan Assessment & Plan (1) PTSD (post-traumatic stress disorder): Status: Acute Code(s): F43.10 - Post-traumatic stress disorder, unspecified (2) Schizoaffective disorder: Status: Acute Code(s): F25.9 - Schizoaffective disorder, unspecified Plan Admit, CV, 15 minute checks Collateral Contact Diagnostics as needed Continue current regime Encourage full milieu Discharge planning 01/21:A1c 10.5, Hospitalist consult, Nutrition consult. Will attempt to order Caplyta for a trial, pt request. 01/22/25- continue treatment plan- 01/23/25- CTP 01/24/25- Continue regime, Caplyta ordered. Reason for continued inpatient stay Substantial Risk for: rapid decompensation Time Spent With Patient Time: Total time managing care of this patient today ____ minutes.
[2025-01-24 19:56] VITALS: BP 141/84; PULSE 111; RESP 20; TEMP 36.3; O2SAT 96
[2025-01-24] MEDS: Atorvastatin Calcium 40 MG TABLET PO (21:30)
[2025-01-25 08:20] VITALS: BP 140/77; PULSE 100; TEMP 36.3; O2SAT 97
[2025-01-25] MEDS: Propranolol HCL 10 MG TABLET 30 MG PO (08:29)
[2025-01-25] MEDS: Fenofibrate 54 MG TABLET PO (08:29)
[2025-01-25] MEDS: Paliperidone ER 6 MG TAB.ER.24 PO (08:30)
[2025-01-25] MEDS: lisinopriL 10 MG TABLET PO (08:30)
[2025-01-25] MEDS: metFORMIN HCl ER 500 MG TAB.ER.24H 1000 MG PO ×2 (08:30→17:32)
[2025-01-25] MEDS: OXcarbazepine 300 MG TABLET PO ×2 (08:30→21:47)
[2025-01-25] MEDS: Escitalopram Oxalate 20 MG TABLET PO (08:30)
[2025-01-25] MEDS: Empagliflozin 25 MG TABLET PO (08:30)
[2025-01-25 08:45] LABS: Estimated Glomerular Filt Rate > 60
--- NOTE | 2025-01-25 16:35 | P.PNPSI_ITS ---
Subjective Subjective Date of Service: 01/25/25 Reason For Visit: depression Subjective Notes: Conditional Voluntary Healthcare Proxy: No Guardianship: No Medical Problems Affecting Mental Status: No Interim History: Medications reviewed with pts father and guardian. Gini Fair [facility] was able to locate pt's [facility] who informed us that his last dose of Invega Sustenna was on 12/22/24, so he is due for his IM as his order is for 78 mg q 3 weeks. Discussed the Sustenna decrease, I felt more free, but with an increase in racing thoughts and it was hard to keep things together. Medication Compliance: Yes Side effects from medications: No Attending Groups: Yes Review of Systems Acute medical concerns: No Medical Review of Systems: unchanged Review of Systems Review of Systems Denies Mental Status Exam Mental Status Exam Patient Appearance: Appropriate Patient Orientation: Person, Place, Time and Situation Level of Consciousness: Awake and Alert Patient Behavior: Appropriate, Talkative and Good Eye Contact Mood Description: Calm and Depressed Affect Description: Appropriate and Flat Patient Cognition Impaired: No Ability to Follow Directions: Good Speech Pattern: Clear Memory Description: Intact Hallucinations: None Perceptual Disturbances: Depersonalization and Derealization Thought Process: Intact Thought Content: positive for Intact Depressive Symptoms: Increased Irritability Judgement: Fair Diagnostics Vital Signs (24Hr): Vital Signs - 24 hr 01/24/25 19:56 01/25/25 08:20 Temperature 97.3 F 97.3 F Pulse Rate 111 H 100 Respiratory Rate 20 Blood Pressure 141/84 H 140/77 H Pulse Oximetry 96 97 Oxygen Delivery Method Room Air Room Air BMI result Body Mass Index 40.9 Labs 01/18/25 23:20 01/25/25 07:39 Labs: Laboratory Results - last 48 hr 01/25/25 07:39 Creatinine 0.85 Estim Creat Clear Calc 156.0 Estimated GFR > 60 Medications Medications Current Medications Acetaminophen (Acetaminophen 325 Mg Tablet) 650 mg PO Q6H PRN PRN Reason: Headache/Pain, Scale 1-10 Last Admin: 01/23/25 17:43 Dose: 650 mg Al Hydroxide/Mg Hydroxide (Magnesium Hydrox/Alum Hydrox 30 Ml Oral.Susp) 30 ml PO Q6H PRN PRN Reason: Heartburn/Nausea Atorvastatin Calcium (Atorvastatin Calcium 40 Mg Tablet) 40 mg PO BEDTIME [facility] Last Admin: 01/24/25 21:30 Dose: 40 mg Empagliflozin (Empagliflozin 25 Mg Tablet) 25 mg PO DAILY [facility] Last Admin: 01/25/25 08:30 Dose: 25 mg Escitalopram Oxalate (Escitalopram Oxalate 20 Mg Tablet) 20 mg PO DAILY [facility] Last Admin: 01/25/25 08:30 Dose: 20 mg Fenofibrate (Fenofibrate 54 Mg Tablet) 54 mg PO DAILY [facility] Last Admin: 01/25/25 08:29 Dose: 54 mg Hydroxyzine HCl (Hydroxyzine Hcl 25 Mg Tablet) 25 mg PO Q6H PRN PRN Reason: mild anxiety Last Admin: 01/24/25 21:30 Dose: 25 mg Lisinopril (Lisinopril 10 Mg Tablet) 10 mg PO DAILY [facility]; Protocol Last Admin: 01/25/25 08:30 Dose: 10 mg Magnesium Hydroxide (Milk Of Magnesia 30 Ml Oral.Susp) 30 ml PO DAILY PRN PRN Reason: Constipation Metformin HCl (Metformin Hcl Er 500 Mg Tab.Er.24h) 1,000 mg PO BIDAC [facility] Last Admin: 01/25/25 08:30 Dose: 1,000 mg Nicotine Polacrilex (Nicotine Polacrilex 2 Mg Gum) 4 mg BUCCAL Q2H PRN PRN Reason: Nicotine Cravings Olanzapine (Olanzapine 5 Mg Tablet) 5 mg PO Q4H PRN PRN Reason: agitation, psychosis Last Admin: 01/22/25 21:16 Dose: 5 mg Oxcarbazepine (Oxcarbazepine 300 Mg Tablet) 300 mg PO BID [facility] Last Admin: 01/25/25 08:30 Dose: 300 mg Paliperidone (Paliperidone Er 6 Mg Tab.Er.24) 6 mg PO DAILY [facility] Last Admin: 01/25/25 08:30 Dose: 6 mg Paliperidone Palmitate (Paliperidone Palmitate 78 Mg/0.5 Ml Syringe) 78 mg IM Q28D [facility] Propranolol HCl (Propranolol Hcl 10 Mg Tablet) 30 mg PO DAILY [facility]; Protocol Last Admin: 01/25/25 08:29 Dose: 30 mg Trazodone HCl (Trazodone Hcl 50 Mg Tablet) 50 mg PO BEDTIME MRX1 PRN PRN Reason: Insomnia Last Admin: 01/23/25 21:22 Dose: 50 mg Allergies Allergies Allergy/AdvReac Type Severity Reaction Status Date / Time cat dander [CATS] Allergy Unknown RASH Verified 01/18/25 22:47 Assessment & Plan Assessment & Plan (1) PTSD (post-traumatic stress disorder): Status: Acute Code(s): F43.10 - Post-traumatic stress disorder, unspecified (2) Schizoaffective disorder: Status: Acute Code(s): F25.9 - Schizoaffective disorder, unspecified Plan Admit, CV, 15 minute checks Collateral Contact Diagnostics as needed Continue current regime Encourage full milieu Discharge planning 01/21:A1c 10.5, Hospitalist consult, Nutrition consult. Will attempt to order Caplyta for a trial, pt request. 01/22/25- continue treatment plan- 01/23/25- CTP 01/25/25- Sustenna 78 mg IM today (last dose per [facility] 12/22/24. Dosing ordered q3 weeks.) Caplyta 10.5 mg HS to begin on 01/26. Reviewed with pt's father/guardian. Reason for continued inpatient stay Substantial Risk for: rapid decompensation Time Spent With Patient Time: Total time managing care of this patient today ____ minutes.
[2025-01-25 20:00] VITALS: BP 134/81; PULSE 127; TEMP 36.1; O2SAT 99
[2025-01-25] MEDS: Atorvastatin Calcium 40 MG TABLET PO (21:47)
[2025-01-25] MEDS: traZODone HCL 50 MG TABLET PO (22:08)
[2025-01-26 08:33] VITALS: BP 138/89; PULSE 108; TEMP 36.4; O2SAT 95
[2025-01-26] MEDS: metFORMIN HCl ER 500 MG TAB.ER.24H 1000 MG PO ×2 (08:35→16:52)
[2025-01-26] MEDS: OXcarbazepine 300 MG TABLET PO ×2 (08:35→22:33)
[2025-01-26] MEDS: Escitalopram Oxalate 20 MG TABLET PO (08:35)
[2025-01-26] MEDS: Paliperidone ER 6 MG TAB.ER.24 PO (08:35)
[2025-01-26] MEDS: lisinopriL 10 MG TABLET PO (08:35)
[2025-01-26] MEDS: Empagliflozin 25 MG TABLET PO (08:35)
[2025-01-26] MEDS: Fenofibrate 54 MG TABLET PO (08:35)
[2025-01-26] MEDS: Propranolol HCL 10 MG TABLET 30 MG PO (08:36)
--- NOTE | 2025-01-26 09:52 | P.PNPSI_ITS ---
Subjective Subjective Date of Service: 01/26/25 Reason For Visit: depression Subjective Notes: Conditional Voluntary Healthcare Proxy: No Guardianship: No Medical Problems Affecting Mental Status: No Interim History: Ivana Chambers ordered from [facility]-scheduled to arrive on 01/27. Call from father/guardian who called Dr. Hedrick to discuss his recommendation for Caplyta. Father was told by Dr. Hedrick that he did not talk with tw on 01/21 and did not recommend Caplyta. As a result, father asks that we not do a Caplyta trial and asked that tw call him as we had discussed Vraylar as well. Message left for father. Reviewed the above with pt. He would like to trial Vraylar and agrees if father agrees. Pt discussed today his hopes for medicine sx mgt and improving his future. Medication Compliance: Yes Side effects from medications: No Attending Groups: Yes Review of Systems Acute medical concerns: No Medical Review of Systems: unchanged Review of Systems Review of Systems Denies Mental Status Exam Mental Status Exam Patient Appearance: Appropriate Patient Orientation: Person, Place, Time and Situation Level of Consciousness: Awake and Alert Patient Behavior: Appropriate, Talkative and Good Eye Contact Mood Description: Calm and Depressed Affect Description: Appropriate and Flat Patient Cognition Impaired: No Ability to Follow Directions: Good Speech Pattern: Clear Memory Description: Intact Hallucinations: None Perceptual Disturbances: Depersonalization and Derealization Thought Process: Intact Thought Content: positive for Intact Depressive Symptoms: Increased Irritability Judgement: Fair Diagnostics Vital Signs (24Hr): Vital Signs - 24 hr 01/25/25 20:00 01/26/25 08:33 Temperature 96.9 F 97.6 F Pulse Rate 127 H 108 H Blood Pressure 134/81 138/89 Pulse Oximetry 99 95 Oxygen Delivery Method Room Air Room Air BMI result Body Mass Index 40.9 Labs 01/18/25 23:20 01/25/25 07:39 Labs: Laboratory Results - last 48 hr 01/25/25 07:39 Creatinine 0.85 Estim Creat Clear Calc 156.0 Estimated GFR > 60 Medications Medications Current Medications Acetaminophen (Acetaminophen 325 Mg Tablet) 650 mg PO Q6H PRN PRN Reason: Headache/Pain, Scale 1-10 Last Admin: 01/23/25 17:43 Dose: 650 mg Al Hydroxide/Mg Hydroxide (Magnesium Hydrox/Alum Hydrox 30 Ml Oral.Susp) 30 ml PO Q6H PRN PRN Reason: Heartburn/Nausea Atorvastatin Calcium (Atorvastatin Calcium 40 Mg Tablet) 40 mg PO BEDTIME [facility] Last Admin: 01/25/25 21:47 Dose: 40 mg Empagliflozin (Empagliflozin 25 Mg Tablet) 25 mg PO DAILY [facility] Last Admin: 01/26/25 08:35 Dose: 25 mg Escitalopram Oxalate (Escitalopram Oxalate 20 Mg Tablet) 20 mg PO DAILY [facility] Last Admin: 01/26/25 08:35 Dose: 20 mg Fenofibrate (Fenofibrate 54 Mg Tablet) 54 mg PO DAILY [facility] Last Admin: 01/26/25 08:35 Dose: 54 mg Hydroxyzine HCl (Hydroxyzine Hcl 25 Mg Tablet) 25 mg PO Q6H PRN PRN Reason: mild anxiety Last Admin: 01/24/25 21:30 Dose: 25 mg Lisinopril (Lisinopril 10 Mg Tablet) 10 mg PO DAILY [facility]; Protocol Last Admin: 01/26/25 08:35 Dose: 10 mg Magnesium Hydroxide (Milk Of Magnesia 30 Ml Oral.Susp) 30 ml PO DAILY PRN PRN Reason: Constipation Metformin HCl (Metformin Hcl Er 500 Mg Tab.Er.24h) 1,000 mg PO BIDAC [facility] Last Admin: 01/26/25 08:35 Dose: 1,000 mg Nicotine Polacrilex (Nicotine Polacrilex 2 Mg Gum) 4 mg BUCCAL Q2H PRN PRN Reason: Nicotine Cravings Olanzapine (Olanzapine 5 Mg Tablet) 5 mg PO Q4H PRN PRN Reason: agitation, psychosis Last Admin: 01/22/25 21:16 Dose: 5 mg Oxcarbazepine (Oxcarbazepine 300 Mg Tablet) 300 mg PO BID [facility] Last Admin: 01/26/25 08:35 Dose: 300 mg Paliperidone (Paliperidone Er 6 Mg Tab.Er.24) 6 mg PO DAILY [facility] Last Admin: 01/26/25 08:35 Dose: 6 mg Paliperidone Palmitate (Paliperidone Palmitate 78 Mg/0.5 Ml Syringe) 78 mg IM Q28D [facility] Paliperidone Palmitate (Paliperidone Palmitate 156 Mg/Ml Syringe) 78 mg IM ONCE ONE Stop: 01/25/25 17:40 Propranolol HCl (Propranolol Hcl 10 Mg Tablet) 30 mg PO DAILY [facility]; Protocol Last Admin: 01/26/25 08:36 Dose: 30 mg Trazodone HCl (Trazodone Hcl 50 Mg Tablet) 50 mg PO BEDTIME MRX1 PRN PRN Reason: Insomnia Last Admin: 01/25/25 22:08 Dose: 50 mg Allergies Allergies Allergy/AdvReac Type Severity Reaction Status Date / Time cat dander [CATS] Allergy Unknown RASH Verified 01/18/25 22:47 Assessment & Plan Assessment & Plan (1) PTSD (post-traumatic stress disorder): Status: Acute Code(s): F43.10 - Post-traumatic stress disorder, unspecified (2) Schizoaffective disorder: Status: Acute Code(s): F25.9 - Schizoaffective disorder, unspecified Plan Admit, CV, 15 minute checks Collateral Contact Diagnostics as needed Continue current regime Encourage full milieu Discharge planning 01/21:A1c 10.5, Hospitalist consult, Nutrition consult. Will attempt to order Caplyta for a trial, pt request. 01/22/25- continue treatment plan- 01/23/25- CTP 01/25/25- Sustenna 78 mg IM today (last dose per [facility] 12/22/24. Dosing ordered q3 weeks.) Caplyta 10.5 mg HS to begin on 01/26. Reviewed with pt's father/guardian. 01/26/25- DC Caplyta- per guardians. Sustenna still pending Reason for continued inpatient stay Substantial Risk for: rapid decompensation Time Spent With Patient Time: Total time managing care of this patient today ____ minutes.
[2025-01-26] MEDS: hydrOXYzine HCL 25 MG TABLET PO (13:11)
[2025-01-26] MEDS: Multivitamin TABLET 1 TAB PO (13:11)
[2025-01-26] MEDS: Magnesium Hydrox/Alum Hydrox 30 ML ORAL.SUSP PO (13:12)
[2025-01-26 20:40] VITALS: BP 134/78; PULSE 104; RESP 16; TEMP 36.8; O2SAT 97
[2025-01-26] MEDS: Atorvastatin Calcium 40 MG TABLET PO (22:33)
[2025-01-26] MEDS: traZODone HCL 50 MG TABLET PO (22:34)
[2025-01-27 07:00] VITALS: BMI 41.6
[2025-01-27 07:55] VITALS: BP 130/84; PULSE 112; RESP 16; TEMP 36.4; O2SAT 92
[2025-01-27] MEDS: Escitalopram Oxalate 20 MG TABLET PO (08:26)
[2025-01-27] MEDS: Propranolol HCL 10 MG TABLET 30 MG PO (08:26)
[2025-01-27] MEDS: Paliperidone ER 6 MG TAB.ER.24 PO (08:27)
[2025-01-27] MEDS: Multivitamin TABLET 1 TAB PO (08:27)
[2025-01-27] MEDS: Empagliflozin 25 MG TABLET PO (08:27)
[2025-01-27] MEDS: metFORMIN HCl ER 500 MG TAB.ER.24H 1000 MG PO ×2 (08:27→17:44)
[2025-01-27] MEDS: Fenofibrate 54 MG TABLET PO (08:27)
[2025-01-27] MEDS: lisinopriL 10 MG TABLET PO (08:27)
[2025-01-27] MEDS: OXcarbazepine 300 MG TABLET PO ×2 (08:27→22:25)
[2025-01-27] MEDS: Acetaminophen 325 MG TABLET 650 MG PO ×2 (08:53→22:25)
--- NOTE | 2025-01-27 11:23 | PC.NURSE ---
called [facility]; Ivana joseph due to be delivered today
--- NOTE | 2025-01-27 12:20 | HO.PSYCHPN ---
Subjective Subjective Date of Service: 01/27/25 Reason For Visit: depression Subjective Notes: Conditional Voluntary Healthcare Proxy: No Guardianship: No Medical Problems Affecting Mental Status: No Interim History: Family meeting scheduled for 01/28. Pt visable in milieu, participating with sincere effort. Talked with pt's mother. Family trip scheduled for 02/12 to see grandmother who is on hospice. We will work toward this goal for stabilization so pt may travel. He agrees this is an appropriate goal. Invega Sustenna injection given this evening. Medication Compliance: Yes Side effects from medications: No Attending Groups: Yes Review of Systems Acute medical concerns: No Review of Systems Review of Systems Denies Mental Status Exam Mental Status Exam Patient Appearance: Appropriate Patient Orientation: Person, Place, Time and Situation Level of Consciousness: Awake and Alert Patient Behavior: Appropriate, Talkative and Good Eye Contact Mood Description: Calm and Depressed Affect Description: Appropriate and Flat Patient Cognition Impaired: No Ability to Follow Directions: Good Speech Pattern: Clear Memory Description: Intact Hallucinations: None Perceptual Disturbances: Depersonalization and Derealization Thought Process: Intact Thought Content: positive for Intact Depressive Symptoms: Increased Irritability Judgement: Fair Diagnostics Vital Signs (24Hr): Vital Signs - 24 hr 01/26/25 20:40 01/27/25 07:55 Temperature 98.2 F 97.5 F Pulse Rate 104 H 112 H Respiratory Rate 16 16 Blood Pressure 134/78 130/84 Pulse Oximetry 97 92 Oxygen Delivery Method Room Air Room Air BMI result Body Mass Index 41.6 Labs 01/18/25 23:20 01/25/25 07:39 Medications Medications Current Medications Acetaminophen (Acetaminophen 325 Mg Tablet) 650 mg PO Q6H PRN PRN Reason: Headache/Pain, Scale 1-10 Last Admin: 01/27/25 08:53 Dose: 650 mg Al Hydroxide/Mg Hydroxide (Magnesium Hydrox/Alum Hydrox 30 Ml Oral.Susp) 30 ml PO Q6H PRN PRN Reason: Heartburn/Nausea Last Admin: 01/26/25 13:12 Dose: 30 ml Atorvastatin Calcium (Atorvastatin Calcium 40 Mg Tablet) 40 mg PO BEDTIME [facility] Last Admin: 01/26/25 22:33 Dose: 40 mg Empagliflozin (Empagliflozin 25 Mg Tablet) 25 mg PO DAILY [facility] Last Admin: 01/27/25 08:27 Dose: 25 mg Escitalopram Oxalate (Escitalopram Oxalate 20 Mg Tablet) 20 mg PO DAILY [facility] Last Admin: 01/27/25 08:26 Dose: 20 mg Fenofibrate (Fenofibrate 54 Mg Tablet) 54 mg PO DAILY [facility] Last Admin: 01/27/25 08:27 Dose: 54 mg Hydroxyzine HCl (Hydroxyzine Hcl 25 Mg Tablet) 25 mg PO Q6H PRN PRN Reason: mild anxiety Last Admin: 01/26/25 13:11 Dose: 25 mg Lisinopril (Lisinopril 10 Mg Tablet) 10 mg PO DAILY [facility]; Protocol Last Admin: 01/27/25 08:27 Dose: 10 mg Magnesium Hydroxide (Milk Of Magnesia 30 Ml Oral.Susp) 30 ml PO DAILY PRN PRN Reason: Constipation Metformin HCl (Metformin Hcl Er 500 Mg Tab.Er.24h) 1,000 mg PO BIDAC [facility] Last Admin: 01/27/25 08:27 Dose: 1,000 mg Multivitamins/Vitamin C (Multivitamin Tablet) 1 tab PO DAILY [facility] Last Admin: 01/27/25 08:27 Dose: 1 tab Nicotine Polacrilex (Nicotine Polacrilex 2 Mg Gum) 4 mg BUCCAL Q2H PRN PRN Reason: Nicotine Cravings Olanzapine (Olanzapine 5 Mg Tablet) 5 mg PO Q4H PRN PRN Reason: agitation, psychosis Last Admin: 01/22/25 21:16 Dose: 5 mg Oxcarbazepine (Oxcarbazepine 300 Mg Tablet) 300 mg PO BID [facility] Last Admin: 01/27/25 08:27 Dose: 300 mg Paliperidone (Paliperidone Er 6 Mg Tab.Er.24) 6 mg PO DAILY [facility] Last Admin: 01/27/25 08:27 Dose: 6 mg Paliperidone Palmitate (Paliperidone Palmitate 78 Mg/0.5 Ml Syringe) 78 mg IM Q28D [facility] Paliperidone Palmitate (Paliperidone Palmitate 156 Mg/Ml Syringe) 78 mg IM ONCE ONE Stop: 01/25/25 17:40 Propranolol HCl (Propranolol Hcl 10 Mg Tablet) 30 mg PO DAILY [facility]; Protocol Last Admin: 01/27/25 08:26 Dose: 30 mg Sodium Chloride (Sodium Chloride 0.65 % Nasal 44 Ml Sprbtl) 1 spray NOSTRIL-B Q1H PRN PRN Reason: Congestion Trazodone HCl (Trazodone Hcl 50 Mg Tablet) 50 mg PO BEDTIME MRX1 PRN PRN Reason: Insomnia Last Admin: 01/26/25 22:34 Dose: 50 mg Allergies Allergies Allergy/AdvReac Type Severity Reaction Status Date / Time cat dander [CATS] Allergy Unknown RASH Verified 01/18/25 22:47 Assessment & Plan Assessment & Plan (1) PTSD (post-traumatic stress disorder): Status: Acute Code(s): F43.10 - Post-traumatic stress disorder, unspecified (2) Schizoaffective disorder: Status: Acute Code(s): F25.9 - Schizoaffective disorder, unspecified Plan Admit, CV, 15 minute checks Collateral Contact Diagnostics as needed Continue current regime Encourage full milieu Discharge planning 01/21:A1c 10.5, Hospitalist consult, Nutrition consult. Will attempt to order Caplyta for a trial, pt request. 01/22/25- continue treatment plan- 01/23/25- CTP 01/25/25- Sustenna 78 mg IM today (last dose per [facility] 12/22/24. Dosing ordered q3 weeks.) Caplyta 10.5 mg HS to begin on 01/26. Reviewed with pt's father/guardian. 01/27- Family meeting to review meds 01/28. Pt received Sustenna this evening. Reason for continued inpatient stay Substantial Risk for: rapid decompensation Time Spent With Patient Time: Total time managing care of this patient today ____ minutes.
[2025-01-27 19:55] VITALS: BP 145/76; PULSE 105; RESP 16; TEMP 36.3; O2SAT 97
[2025-01-27] MEDS: traZODone HCL 50 MG TABLET PO (22:25)
[2025-01-27] MEDS: Atorvastatin Calcium 40 MG TABLET PO (22:25)
[2025-01-28] MEDS: metFORMIN HCl ER 500 MG TAB.ER.24H 1000 MG PO ×2 (07:26→17:28)
[2025-01-28 08:08] VITALS: BP 142/81; PULSE 111; RESP 16; TEMP 36.7; O2SAT 96
[2025-01-28] MEDS: Paliperidone ER 6 MG TAB.ER.24 PO (08:21)
[2025-01-28] MEDS: lisinopriL 10 MG TABLET PO (08:22)
[2025-01-28] MEDS: Fenofibrate 54 MG TABLET PO (08:22)
[2025-01-28] MEDS: Escitalopram Oxalate 20 MG TABLET PO (08:22)
[2025-01-28] MEDS: Empagliflozin 25 MG TABLET PO (08:22)
[2025-01-28] MEDS: Multivitamin TABLET 1 TAB PO (08:22)
[2025-01-28] MEDS: OXcarbazepine 300 MG TABLET PO ×2 (08:22→21:03)
[2025-01-28] MEDS: Propranolol HCL 10 MG TABLET 30 MG PO ×2 (08:22→21:02)
--- NOTE | 2025-01-28 16:25 | P.PNPSI_ITS ---
Subjective Subjective Date of Service: 01/28/25 Reason For Visit: depression Subjective Notes: Conditional Voluntary Healthcare Proxy: No Guardianship: Yes Medical Problems Affecting Mental Status: No Interim History: Family meeting with pt, parents, Juan DUNCAN Pt does participate in out pt neurofeedback on a regular basis. By history, pt has had a better result on Sustenna vs PO Risperdal Discussed Vraylar trial. Pt will have psychopharm with [facility] upon discharge Parents reports pt places much effort into his treatment, working on grounding, social cues and mgt of racing thoughts. Goal will be to have pt transition to Vraylar so he may travel to see his grandmother who is on hospice on 02/12/25 with family. Medication Compliance: Yes Side effects from medications: No Attending Groups: Yes Review of Systems Acute medical concerns: No Review of Systems Review of Systems Denies Mental Status Exam Mental Status Exam Patient Appearance: Appropriate Patient Orientation: Person, Place, Time and Situation Level of Consciousness: Awake and Alert Patient Behavior: Appropriate, Talkative and Good Eye Contact Mood Description: Calm and Depressed Affect Description: Appropriate and Flat Patient Cognition Impaired: No Ability to Follow Directions: Good Speech Pattern: Clear Memory Description: Intact Hallucinations: None Perceptual Disturbances: Depersonalization and Derealization Thought Process: Intact Thought Content: positive for Intact Depressive Symptoms: Increased Irritability Judgement: Fair Diagnostics Vital Signs (24Hr): Vital Signs - 24 hr 01/27/25 19:55 01/28/25 08:08 Temperature 97.3 F 98.0 F Pulse Rate 105 H 111 H Respiratory Rate 16 16 Blood Pressure 145/76 H 142/81 H Pulse Oximetry 97 96 Oxygen Delivery Method Room Air Room Air BMI result Body Mass Index 41.6 Labs 01/18/25 23:20 01/25/25 07:39 Medications Medications Current Medications Acetaminophen (Acetaminophen 325 Mg Tablet) 650 mg PO Q6H PRN PRN Reason: Headache/Pain, Scale 1-10 Last Admin: 01/27/25 22:25 Dose: 650 mg Al Hydroxide/Mg Hydroxide (Magnesium Hydrox/Alum Hydrox 30 Ml Oral.Susp) 30 ml PO Q6H PRN PRN Reason: Heartburn/Nausea Last Admin: 01/26/25 13:12 Dose: 30 ml Atorvastatin Calcium (Atorvastatin Calcium 40 Mg Tablet) 40 mg PO BEDTIME [facility] Last Admin: 01/27/25 22:25 Dose: 40 mg Empagliflozin (Empagliflozin 25 Mg Tablet) 25 mg PO DAILY [facility] Last Admin: 01/28/25 08:22 Dose: 25 mg Escitalopram Oxalate (Escitalopram Oxalate 20 Mg Tablet) 20 mg PO DAILY [facility] Last Admin: 01/28/25 08:22 Dose: 20 mg Fenofibrate (Fenofibrate 54 Mg Tablet) 54 mg PO DAILY [facility] Last Admin: 01/28/25 08:22 Dose: 54 mg Hydroxyzine HCl (Hydroxyzine Hcl 25 Mg Tablet) 25 mg PO Q6H PRN PRN Reason: mild anxiety Last Admin: 01/26/25 13:11 Dose: 25 mg Lisinopril (Lisinopril 10 Mg Tablet) 10 mg PO DAILY [facility]; Protocol Last Admin: 01/28/25 08:22 Dose: 10 mg Magnesium Hydroxide (Milk Of Magnesia 30 Ml Oral.Susp) 30 ml PO DAILY PRN PRN Reason: Constipation Metformin HCl (Metformin Hcl Er 500 Mg Tab.Er.24h) 1,000 mg PO BIDAC [facility] Last Admin: 01/28/25 07:26 Dose: 1,000 mg Multivitamins/Vitamin C (Multivitamin Tablet) 1 tab PO DAILY [facility] Last Admin: 01/28/25 08:22 Dose: 1 tab Nicotine Polacrilex (Nicotine Polacrilex 2 Mg Gum) 4 mg BUCCAL Q2H PRN PRN Reason: Nicotine Cravings Olanzapine (Olanzapine 5 Mg Tablet) 5 mg PO Q4H PRN PRN Reason: agitation, psychosis Last Admin: 01/22/25 21:16 Dose: 5 mg Oxcarbazepine (Oxcarbazepine 300 Mg Tablet) 300 mg PO BID [facility] Last Admin: 01/28/25 08:22 Dose: 300 mg Paliperidone (Paliperidone Er 6 Mg Tab.Er.24) 6 mg PO DAILY [facility] Last Admin: 01/28/25 08:21 Dose: 6 mg Paliperidone Palmitate (Paliperidone Palmitate 78 Mg/0.5 Ml Syringe) 78 mg IM Q28D [facility] Last Admin: 01/27/25 17:52 Dose: Not Given Propranolol HCl (Propranolol Hcl 10 Mg Tablet) 30 mg PO DAILY [facility]; Protocol Last Admin: 01/28/25 08:22 Dose: 30 mg Sodium Chloride (Sodium Chloride 0.65 % Nasal 44 Ml Sprbtl) 1 spray NOSTRIL-B Q1H PRN PRN Reason: Congestion Trazodone HCl (Trazodone Hcl 50 Mg Tablet) 50 mg PO BEDTIME MRX1 PRN PRN Reason: Insomnia Last Admin: 01/27/25 22:25 Dose: 50 mg Allergies Allergies Allergy/AdvReac Type Severity Reaction Status Date / Time cat dander [CATS] Allergy Unknown RASH Verified 01/18/25 22:47 Assessment & Plan Assessment & Plan (1) PTSD (post-traumatic stress disorder): Status: Acute Code(s): F43.10 - Post-traumatic stress disorder, unspecified (2) Schizoaffective disorder: Status: Acute Code(s): F25.9 - Schizoaffective disorder, unspecified Plan Admit, CV, 15 minute checks Collateral Contact Diagnostics as needed Continue current regime Encourage full milieu Discharge planning 01/21:A1c 10.5, Hospitalist consult, Nutrition consult. Will attempt to order Caplyta for a trial, pt request. 01/22/25- continue treatment plan- 01/23/25- CTP 01/25/25- Sustenna 78 mg IM today (last dose per [facility] 12/22/24. Dosing ordered q3 weeks.) Caplyta 10.5 mg HS to begin on 01/26. Reviewed with pt's father/guardian. 01/28/25-Hospitalist consult- Mgt. of HTN, DM. Vraylar 1.5 mg 01/29 and 01/30. If tolerated, increase Vraylar to 3 mg on 01/31. Decrease PO Invega to 3 mg Reason for continued inpatient stay Substantial Risk for: rapid decompensation Time Spent With Patient Time: Total time managing care of this patient today ____ minutes.
--- NOTE | 2025-01-28 18:50 | P.EN_ITS ---
Event Note Date of Service: 01/28/25 Event Note: Pt is a 39-year-old male admitted [facility] with hospitalist consult placed for diabetes and hypertension management. Patient's guardian apparently requested to see if pt could be started on a GLP-1 agent, though unfortunately we do not have any such medications on formulary here at the hospital. Pt will need to follow-up outpatient with PCP and/or drier take off tender to start this medication. Patient's BP has been reasonably well-controlled for the past 4 days, though pt noted to be tachycardic up to the 110s. Pt currently on lisinopril 10 mg daily and taking propranolol 30 mg daily, though this appears to be an error as pt is on the normal not extended release. Will increase patient's propranolol to 30 mg b.i.d.. Time Spent With Patient Time: Total time managing care of this patient today ____ minutes.
[2025-01-28 20:00] VITALS: BP 125/72; PULSE 100; RESP 16; TEMP 36.6; O2SAT 96
[2025-01-28] MEDS: Atorvastatin Calcium 40 MG TABLET PO (21:03)
[2025-01-28] MEDS: traZODone HCL 50 MG TABLET PO (22:56)
[2025-01-29 07:59] VITALS: BP 145/75; PULSE 90; RESP 18; TEMP 36.6; O2SAT 96
[2025-01-29] MEDS: Cariprazine HCl 1.5 MG CAPSULE PO (08:03)
[2025-01-29] MEDS: Paliperidone ER 3 MG TAB.ER.24 PO (08:03)
[2025-01-29] MEDS: Multivitamin TABLET 1 TAB PO (08:03)
[2025-01-29] MEDS: Propranolol HCL 10 MG TABLET 30 MG PO ×2 (08:03→21:35)
[2025-01-29] MEDS: Empagliflozin 25 MG TABLET PO (08:04)
[2025-01-29] MEDS: metFORMIN HCl ER 500 MG TAB.ER.24H 1000 MG PO ×2 (08:04→16:37)
[2025-01-29] MEDS: OXcarbazepine 300 MG TABLET PO ×2 (08:04→21:36)
[2025-01-29] MEDS: Escitalopram Oxalate 20 MG TABLET PO (08:04)
[2025-01-29] MEDS: Fenofibrate 54 MG TABLET PO (08:04)
[2025-01-29] MEDS: lisinopriL 10 MG TABLET PO (08:04)
[2025-01-29] MEDS: Acetaminophen 325 MG TABLET 650 MG PO (08:07)
--- NOTE | 2025-01-29 09:23 | HO.PSYCHPN ---
Subjective Subjective Date of Service: 01/29/25 Reason For Visit: depression Interim History: met with patient; discussed with team; reviewed chart Patient reports that he is overall happy. He says he was just started on Vraylar which is making him a little tired and he plans to take a nap. Discussed that this medication can be changed to bedtime if it continues to be sedating. Mental Status Exam Mental Status Exam Patient Appearance: Appropriate Patient Orientation: Person, Place, Time and Situation Level of Consciousness: Awake and Alert Patient Behavior: Appropriate, Talkative and Good Eye Contact Mood Description: Calm ( Happy ) and Depressed Affect Description: Appropriate Patient Cognition Impaired: No Ability to Follow Directions: Good Speech Pattern: Clear Memory Description: Intact Hallucinations: None Perceptual Disturbances: Depersonalization and Derealization Thought Process: Intact Thought Content: positive for Intact Judgement: Fair Diagnostics Vital Signs (24Hr): Vital Signs - 24 hr 01/28/25 20:00 01/29/25 07:59 Temperature 98 F 97.8 F Pulse Rate 100 90 Respiratory Rate 16 18 Blood Pressure 125/72 145/75 H Pulse Oximetry 96 96 Oxygen Delivery Method Room Air Room Air BMI result Body Mass Index 41.6 Labs 01/18/25 23:20 01/25/25 07:39 Medications Medications Current Medications Acetaminophen (Acetaminophen 325 Mg Tablet) 650 mg PO Q6H PRN PRN Reason: Headache/Pain, Scale 1-10 Last Admin: 01/29/25 08:07 Dose: 650 mg Al Hydroxide/Mg Hydroxide (Magnesium Hydrox/Alum Hydrox 30 Ml Oral.Susp) 30 ml PO Q6H PRN PRN Reason: Heartburn/Nausea Last Admin: 01/26/25 13:12 Dose: 30 ml Atorvastatin Calcium (Atorvastatin Calcium 40 Mg Tablet) 40 mg PO BEDTIME [facility] Last Admin: 01/28/25 21:03 Dose: 40 mg Cariprazine (Cariprazine Hcl 1.5 Mg Capsule) 1.5 mg PO DAILY [facility] Last Admin: 01/29/25 08:03 Dose: 1.5 mg Cariprazine (Cariprazine Hcl 3 Mg Capsule) 3 mg PO DAILY [facility] Empagliflozin (Empagliflozin 25 Mg Tablet) 25 mg PO DAILY [facility] Last Admin: 01/29/25 08:04 Dose: 25 mg Escitalopram Oxalate (Escitalopram Oxalate 20 Mg Tablet) 20 mg PO DAILY [facility] Last Admin: 01/29/25 08:04 Dose: 20 mg Fenofibrate (Fenofibrate 54 Mg Tablet) 54 mg PO DAILY [facility] Last Admin: 01/29/25 08:04 Dose: 54 mg Hydroxyzine HCl (Hydroxyzine Hcl 25 Mg Tablet) 25 mg PO Q6H PRN PRN Reason: mild anxiety Last Admin: 01/26/25 13:11 Dose: 25 mg Lisinopril (Lisinopril 10 Mg Tablet) 10 mg PO DAILY [facility]; Protocol Last Admin: 01/29/25 08:04 Dose: 10 mg Magnesium Hydroxide (Milk Of Magnesia 30 Ml Oral.Susp) 30 ml PO DAILY PRN PRN Reason: Constipation Metformin HCl (Metformin Hcl Er 500 Mg Tab.Er.24h) 1,000 mg PO BIDAC [facility] Last Admin: 01/29/25 08:04 Dose: 1,000 mg Multivitamins/Vitamin C (Multivitamin Tablet) 1 tab PO DAILY [facility] Last Admin: 01/29/25 08:03 Dose: 1 tab Nicotine Polacrilex (Nicotine Polacrilex 2 Mg Gum) 4 mg BUCCAL Q2H PRN PRN Reason: Nicotine Cravings Olanzapine (Olanzapine 5 Mg Tablet) 5 mg PO Q4H PRN PRN Reason: agitation, psychosis Last Admin: 01/22/25 21:16 Dose: 5 mg Oxcarbazepine (Oxcarbazepine 300 Mg Tablet) 300 mg PO BID [facility] Last Admin: 01/29/25 08:04 Dose: 300 mg Paliperidone (Paliperidone Er 3 Mg Tab.Er.24) 3 mg PO DAILY [facility] Last Admin: 01/29/25 08:03 Dose: 3 mg Paliperidone Palmitate (Paliperidone Palmitate 78 Mg/0.5 Ml Syringe) 78 mg IM Q28D [facility] Last Admin: 01/27/25 17:52 Dose: Not Given Propranolol HCl (Propranolol Hcl 10 Mg Tablet) 30 mg PO BID [facility]; Protocol Last Admin: 01/29/25 08:03 Dose: 30 mg Sodium Chloride (Sodium Chloride 0.65 % Nasal 44 Ml Sprbtl) 1 spray NOSTRIL-B Q1H PRN PRN Reason: Congestion Trazodone HCl (Trazodone Hcl 50 Mg Tablet) 50 mg PO BEDTIME MRX1 PRN PRN Reason: Insomnia Last Admin: 01/28/25 22:56 Dose: 50 mg Allergies Allergies Allergy/AdvReac Type Severity Reaction Status Date / Time cat dander [CATS] Allergy Unknown RASH Verified 01/18/25 22:47 Assessment & Plan Assessment & Plan (1) PTSD (post-traumatic stress disorder): Status: Acute Code(s): F43.10 - Post-traumatic stress disorder, unspecified (2) Schizoaffective disorder: Status: Acute Code(s): F25.9 - Schizoaffective disorder, unspecified Plan Admit, CV, 15 minute checks Collateral Contact Diagnostics as needed Continue current regime Encourage full milieu Discharge planning 01/21:A1c 10.5, Hospitalist consult, Nutrition consult. Will attempt to order Caplyta for a trial, pt request. 01/22/25- continue treatment plan- 01/23/25- CTP 01/25/25- Sustenna 78 mg IM today (last dose per [facility] 12/22/24. Dosing ordered q3 weeks.) Caplyta 10.5 mg HS to begin on 01/26. Reviewed with pt's father/guardian. 01/28/25-Hospitalist consult- Mgt. of HTN, DM. Vraylar 1.5 mg 01/29 and 01/30. If tolerated, increase Vraylar to 3 mg on 01/31. Decrease PO Invega to 3 mg 01/29; recently started on Vraylar; will continue current regimen Patient educated on: diagnosis and medication risk/benefits Informed Consent: understands Reason for continued inpatient stay Substantial Risk for: rapid decompensation Time Spent With Patient Time: Total time managing care of this patient today ____ minutes.
[2025-01-29 20:00] VITALS: BP 125/69; PULSE 85; RESP 16; TEMP 36.6; O2SAT 95
[2025-01-29 21:35] VITALS: BP 130/64
[2025-01-29] MEDS: traZODone HCL 50 MG TABLET PO (21:36)
[2025-01-29] MEDS: Atorvastatin Calcium 40 MG TABLET PO (21:37)
[2025-01-30 08:00] VITALS: BP 130/68; PULSE 97; RESP 18; TEMP 36.3; O2SAT 97
[2025-01-30] MEDS: Fenofibrate 54 MG TABLET PO (08:08)
[2025-01-30] MEDS: metFORMIN HCl ER 500 MG TAB.ER.24H 1000 MG PO ×2 (08:08→18:00)
[2025-01-30] MEDS: OXcarbazepine 300 MG TABLET PO ×2 (08:08→21:18)
[2025-01-30] MEDS: Multivitamin TABLET 1 TAB PO (08:08)
[2025-01-30] MEDS: Propranolol HCL 10 MG TABLET 30 MG PO ×2 (08:08→21:18)
[2025-01-30] MEDS: Paliperidone ER 3 MG TAB.ER.24 PO (08:08)
[2025-01-30] MEDS: Empagliflozin 25 MG TABLET PO (08:08)
[2025-01-30] MEDS: Escitalopram Oxalate 20 MG TABLET PO (08:08)
[2025-01-30] MEDS: Cariprazine HCl 1.5 MG CAPSULE PO (08:08)
[2025-01-30] MEDS: lisinopriL 10 MG TABLET PO (08:08)
[2025-01-30 19:39] VITALS: BP 139/87; PULSE 106; TEMP 36.2; O2SAT 98
[2025-01-30 21:18] VITALS: BP 139/87; PULSE 106
[2025-01-30] MEDS: traZODone HCL 50 MG TABLET PO (21:18)
[2025-01-30] MEDS: Acetaminophen 325 MG TABLET 650 MG PO (21:18)
[2025-01-30] MEDS: Atorvastatin Calcium 40 MG TABLET PO (21:19)
--- NOTE | 2025-01-30 23:36 | HO.PSYCHPN ---
Subjective Subjective Date of Service: 01/30/25 Reason For Visit: depression Interim History: met with patient; discussed with team pt says adjusting to Bismarklar; he feels it's helping. Mental Status Exam Mental Status Exam Patient Appearance: Appropriate Patient Orientation: Person, Place, Time and Situation Level of Consciousness: Awake and Alert Patient Behavior: Appropriate, Talkative and Good Eye Contact Mood Description: Calm ( Happy ) and Depressed Affect Description: Appropriate Patient Cognition Impaired: No Ability to Follow Directions: Good Speech Pattern: Clear Memory Description: Intact Hallucinations: None Perceptual Disturbances: Depersonalization and Derealization Thought Process: Intact Thought Content: positive for Intact Judgement: Fair Diagnostics Vital Signs (24Hr): Vital Signs - 24 hr 01/30/25 08:00 01/30/25 19:39 01/30/25 21:18 Temperature 97.3 F 97.1 F Pulse Rate 97 106 H 106 H Respiratory Rate 18 Blood Pressure 130/68 139/87 139/87 Pulse Oximetry 97 98 Oxygen Delivery Method Room Air Room Air BMI result Body Mass Index 41.6 Labs 01/18/25 23:20 01/25/25 07:39 Medications Medications Current Medications Acetaminophen (Acetaminophen 325 Mg Tablet) 650 mg PO Q6H PRN PRN Reason: Headache/Pain, Scale 1-10 Last Admin: 01/30/25 21:18 Dose: 650 mg Al Hydroxide/Mg Hydroxide (Magnesium Hydrox/Alum Hydrox 30 Ml Oral.Susp) 30 ml PO Q6H PRN PRN Reason: Heartburn/Nausea Last Admin: 01/26/25 13:12 Dose: 30 ml Atorvastatin Calcium (Atorvastatin Calcium 40 Mg Tablet) 40 mg PO BEDTIME [facility] Last Admin: 01/30/25 21:19 Dose: 40 mg Cariprazine (Cariprazine Hcl 1.5 Mg Capsule) 1.5 mg PO DAILY [facility] Last Admin: 01/30/25 08:08 Dose: 1.5 mg Cariprazine (Cariprazine Hcl 3 Mg Capsule) 3 mg PO DAILY [facility] Empagliflozin (Empagliflozin 25 Mg Tablet) 25 mg PO DAILY [facility] Last Admin: 01/30/25 08:08 Dose: 25 mg Escitalopram Oxalate (Escitalopram Oxalate 20 Mg Tablet) 20 mg PO DAILY [facility] Last Admin: 01/30/25 08:08 Dose: 20 mg Fenofibrate (Fenofibrate 54 Mg Tablet) 54 mg PO DAILY [facility] Last Admin: 01/30/25 08:08 Dose: 54 mg Hydroxyzine HCl (Hydroxyzine Hcl 25 Mg Tablet) 25 mg PO Q6H PRN PRN Reason: mild anxiety Last Admin: 01/26/25 13:11 Dose: 25 mg Lisinopril (Lisinopril 10 Mg Tablet) 10 mg PO DAILY [facility]; Protocol Last Admin: 01/30/25 08:08 Dose: 10 mg Magnesium Hydroxide (Milk Of Magnesia 30 Ml Oral.Susp) 30 ml PO DAILY PRN PRN Reason: Constipation Metformin HCl (Metformin Hcl Er 500 Mg Tab.Er.24h) 1,000 mg PO BIDAC [facility] Last Admin: 01/30/25 18:00 Dose: 1,000 mg Multivitamins/Vitamin C (Multivitamin Tablet) 1 tab PO DAILY [facility] Last Admin: 01/30/25 08:08 Dose: 1 tab Nicotine Polacrilex (Nicotine Polacrilex 2 Mg Gum) 4 mg BUCCAL Q2H PRN PRN Reason: Nicotine Cravings Olanzapine (Olanzapine 5 Mg Tablet) 5 mg PO Q4H PRN PRN Reason: agitation, psychosis Last Admin: 01/22/25 21:16 Dose: 5 mg Oxcarbazepine (Oxcarbazepine 300 Mg Tablet) 300 mg PO BID [facility] Last Admin: 01/30/25 21:18 Dose: 300 mg Paliperidone (Paliperidone Er 3 Mg Tab.Er.24) 3 mg PO DAILY [facility] Last Admin: 01/30/25 08:08 Dose: 3 mg Paliperidone Palmitate (Paliperidone Palmitate 78 Mg/0.5 Ml Syringe) 78 mg IM Q28D [facility] Last Admin: 01/27/25 17:52 Dose: Not Given Propranolol HCl (Propranolol Hcl 10 Mg Tablet) 30 mg PO BID [facility]; Protocol Last Admin: 01/30/25 21:18 Dose: 30 mg Sodium Chloride (Sodium Chloride 0.65 % Nasal 44 Ml Sprbtl) 1 spray NOSTRIL-B Q1H PRN PRN Reason: Congestion Trazodone HCl (Trazodone Hcl 50 Mg Tablet) 50 mg PO BEDTIME MRX1 PRN PRN Reason: Insomnia Last Admin: 01/30/25 21:18 Dose: 50 mg Allergies Allergies Allergy/AdvReac Type Severity Reaction Status Date / Time cat dander [CATS] Allergy Unknown RASH Verified 01/18/25 22:47 Assessment & Plan Assessment & Plan (1) PTSD (post-traumatic stress disorder): Status: Acute Code(s): F43.10 - Post-traumatic stress disorder, unspecified (2) Schizoaffective disorder: Status: Acute Code(s): F25.9 - Schizoaffective disorder, unspecified Plan Admit, CV, 15 minute checks Collateral Contact Diagnostics as needed Continue current regime Encourage full milieu Discharge planning 01/21:A1c 10.5, Hospitalist consult, Nutrition consult. Will attempt to order Caplyta for a trial, pt request. 01/22/25- continue treatment plan- 01/23/25- CTP 01/25/25- Sustenna 78 mg IM today (last dose per [facility] 12/22/24. Dosing ordered q3 weeks.) Caplyta 10.5 mg HS to begin on 01/26. Reviewed with pt's father/guardian. 01/28/25-Hospitalist consult- Mgt. of HTN, DM. Vraylar 1.5 mg 01/29 and 01/30. If tolerated, increase Vraylar to 3 mg on 01/31. Decrease PO Invega to 3 mg 01/29; recently started on Vraylar; will continue current regimen 01/30 continue tx plan Patient educated on: diagnosis and medication risk/benefits Informed Consent: understands Reason for continued inpatient stay Substantial Risk for: rapid decompensation Time Spent With Patient Time: Total time managing care of this patient today ____ minutes.
[2025-01-31 08:12] VITALS: BP 126/67; PULSE 95; RESP 16; TEMP 36.6; O2SAT 97
[2025-01-31] MEDS: Fenofibrate 54 MG TABLET PO (08:32)
[2025-01-31] MEDS: Propranolol HCL 10 MG TABLET 30 MG PO ×2 (08:32→20:54)
[2025-01-31] MEDS: OXcarbazepine 300 MG TABLET PO ×2 (08:32→20:54)
[2025-01-31] MEDS: Multivitamin TABLET 1 TAB PO (08:32)
[2025-01-31] MEDS: Escitalopram Oxalate 20 MG TABLET PO (08:32)
[2025-01-31] MEDS: Paliperidone ER 3 MG TAB.ER.24 PO (08:32)
[2025-01-31] MEDS: metFORMIN HCl ER 500 MG TAB.ER.24H 1000 MG PO ×2 (08:32→17:00)
[2025-01-31] MEDS: Cariprazine HCl 3 MG CAPSULE PO (08:32)
[2025-01-31] MEDS: Empagliflozin 25 MG TABLET PO (08:32)
[2025-01-31] MEDS: Cariprazine HCl 1.5 MG CAPSULE PO (08:33)
[2025-01-31] MEDS: lisinopriL 10 MG TABLET PO (08:33)
[2025-01-31 08:58] VITALS: BP 117/56
--- NOTE | 2025-01-31 10:11 | HO.PSYCHPN ---
Subjective Subjective Date of Service: 01/31/25 Reason For Visit: depression Subjective Notes: Conditional Voluntary Healthcare Proxy: No Guardianship: Yes Medical Problems Affecting Mental Status: No Interim History: Tolerating Vraylar titration Denies SE Reports a good weekend, a good birthday BP meds adjusted 01/28, Propranolol increase to 30 mg bid Hospitalist is unable to begin GLP-1 as we do not have access Discussed POC bid, pt agrees Agrees with transition to respite prior to family travel to [place] Review of Systems Review of Systems Denies Mental Status Exam Mental Status Exam Patient Appearance: Appropriate Patient Orientation: Person, Place, Time and Situation Level of Consciousness: Alert Patient Behavior: Talkative and Good Eye Contact Mood Description: Cheerful and Anxious Affect Description: Anxious Patient Cognition Impaired: No Ability to Follow Directions: Good Speech Pattern: Spontaneous Speech Memory Description: Intact Hallucinations: None Delusions: Not Present Thought Process: Intact Thought Content: positive for Intact and positive for Perseveration Depressive Symptoms: Increased Anxiety Judgement: Fair Diagnostics Vital Signs (24Hr): Vital Signs - 24 hr 01/30/25 19:39 01/30/25 21:18 01/31/25 08:12 Temperature 97.1 F 97.9 F Pulse Rate 106 H 106 H 95 Respiratory Rate 16 Blood Pressure 139/87 139/87 126/67 Pulse Oximetry 98 97 Oxygen Delivery Method Room Air Room Air 01/31/25 08:58 Temperature Pulse Rate Respiratory Rate Blood Pressure 117/56 L Pulse Oximetry Oxygen Delivery Method BMI result Body Mass Index 41.6 Labs 01/18/25 23:20 01/25/25 07:39 Medications Medications Current Medications Acetaminophen (Acetaminophen 325 Mg Tablet) 650 mg PO Q6H PRN PRN Reason: Headache/Pain, Scale 1-10 Last Admin: 01/30/25 21:18 Dose: 650 mg Al Hydroxide/Mg Hydroxide (Magnesium Hydrox/Alum Hydrox 30 Ml Oral.Susp) 30 ml PO Q6H PRN PRN Reason: Heartburn/Nausea Last Admin: 01/26/25 13:12 Dose: 30 ml Atorvastatin Calcium (Atorvastatin Calcium 40 Mg Tablet) 40 mg PO BEDTIME [facility] Last Admin: 01/30/25 21:19 Dose: 40 mg Cariprazine (Cariprazine Hcl 1.5 Mg Capsule) 1.5 mg PO DAILY [facility] Last Admin: 01/31/25 08:33 Dose: 1.5 mg Cariprazine (Cariprazine Hcl 3 Mg Capsule) 3 mg PO DAILY [facility] Last Admin: 01/31/25 08:32 Dose: 3 mg Empagliflozin (Empagliflozin 25 Mg Tablet) 25 mg PO DAILY [facility] Last Admin: 01/31/25 08:32 Dose: 25 mg Escitalopram Oxalate (Escitalopram Oxalate 20 Mg Tablet) 20 mg PO DAILY [facility] Last Admin: 01/31/25 08:32 Dose: 20 mg Fenofibrate (Fenofibrate 54 Mg Tablet) 54 mg PO DAILY [facility] Last Admin: 01/31/25 08:32 Dose: 54 mg Hydroxyzine HCl (Hydroxyzine Hcl 25 Mg Tablet) 25 mg PO Q6H PRN PRN Reason: mild anxiety Last Admin: 01/26/25 13:11 Dose: 25 mg Lisinopril (Lisinopril 10 Mg Tablet) 10 mg PO DAILY [facility]; Protocol Last Admin: 01/31/25 08:33 Dose: 10 mg Magnesium Hydroxide (Milk Of Magnesia 30 Ml Oral.Susp) 30 ml PO DAILY PRN PRN Reason: Constipation Metformin HCl (Metformin Hcl Er 500 Mg Tab.Er.24h) 1,000 mg PO BIDAC [facility] Last Admin: 01/31/25 08:32 Dose: 1,000 mg Multivitamins/Vitamin C (Multivitamin Tablet) 1 tab PO DAILY [facility] Last Admin: 01/31/25 08:32 Dose: 1 tab Nicotine Polacrilex (Nicotine Polacrilex 2 Mg Gum) 4 mg BUCCAL Q2H PRN PRN Reason: Nicotine Cravings Olanzapine (Olanzapine 5 Mg Tablet) 5 mg PO Q4H PRN PRN Reason: agitation, psychosis Last Admin: 01/22/25 21:16 Dose: 5 mg Oxcarbazepine (Oxcarbazepine 300 Mg Tablet) 300 mg PO BID [facility] Last Admin: 01/31/25 08:32 Dose: 300 mg Paliperidone (Paliperidone Er 3 Mg Tab.Er.24) 3 mg PO DAILY [facility] Last Admin: 01/31/25 08:32 Dose: 3 mg Paliperidone Palmitate (Paliperidone Palmitate 78 Mg/0.5 Ml Syringe) 78 mg IM Q28D [facility] Last Admin: 01/27/25 17:52 Dose: Not Given Propranolol HCl (Propranolol Hcl 10 Mg Tablet) 30 mg PO BID [facility]; Protocol Last Admin: 01/31/25 08:32 Dose: 30 mg Sodium Chloride (Sodium Chloride 0.65 % Nasal 44 Ml Sprbtl) 1 spray NOSTRIL-B Q1H PRN PRN Reason: Congestion Trazodone HCl (Trazodone Hcl 50 Mg Tablet) 50 mg PO BEDTIME MRX1 PRN PRN Reason: Insomnia Last Admin: 01/30/25 21:18 Dose: 50 mg Allergies Allergies Allergy/AdvReac Type Severity Reaction Status Date / Time cat dander [CATS] Allergy Unknown RASH Verified 01/18/25 22:47 Assessment & Plan Assessment & Plan (1) PTSD (post-traumatic stress disorder): Status: Acute Code(s): F43.10 - Post-traumatic stress disorder, unspecified (2) Schizoaffective disorder: Status: Acute Code(s): F25.9 - Schizoaffective disorder, unspecified Plan Admit, CV, 15 minute checks Collateral Contact Diagnostics as needed Continue current regime Encourage full milieu Discharge planning 01/21:A1c 10.5, Hospitalist consult, Nutrition consult. Will attempt to order Caplyta for a trial, pt request. 01/22/25- continue treatment plan- 01/23/25- CTP 01/25/25- Sustenna 78 mg IM today (last dose per [facility] 12/22/24. Dosing ordered q3 weeks.) Caplyta 10.5 mg HS to begin on 01/26. Reviewed with pt's father/guardian. 01/28/25-Hospitalist consult- Mgt. of HTN, DM. Vraylar 1.5 mg 01/29 and 01/30. If tolerated, increase Vraylar to 3 mg on 01/31. Decrease PO Invega to 3 mg 01/29; recently started on Vraylar; will continue current regimen 01/30 continue tx plan 01/31 Increase Vraylar to 3mg daily DC PO Invega Benztropine prn Simethacone prn POC BID Reason for continued inpatient stay Substantial Risk for: rapid decompensation Time Spent With Patient Time: Total time managing care of this patient today ____ minutes.
--- NOTE | 2025-01-31 18:21 | PC.NURSE ---
pt reports he is interested in having his blood sugar checked, maybe once or twice a day because my A1C is 10 . Information will be passed along for TEAM review tomorrow morning
[2025-01-31 19:49] VITALS: BP 154/93; PULSE 117; TEMP 36.2; O2SAT 97
[2025-01-31 20:54] VITALS: BP 154/93; PULSE 117
[2025-01-31] MEDS: Atorvastatin Calcium 40 MG TABLET PO (20:54)
[2025-01-31] MEDS: traZODone HCL 50 MG TABLET PO (20:54)
[2025-02-01 08:00] VITALS: BP 134/80; PULSE 100; RESP 16; TEMP 36.6; O2SAT 97
[2025-02-01 08:35] LABS: Creatinine Clr Calc Pharmacy 145.5; Estimated Glomerular Filt Rate > 60
[2025-02-01 09:09] VITALS: BP 133/75
[2025-02-01] MEDS: Fenofibrate 54 MG TABLET PO (09:09)
[2025-02-01] MEDS: metFORMIN HCl ER 500 MG TAB.ER.24H 1000 MG PO ×2 (09:09→16:09)
[2025-02-01] MEDS: lisinopriL 10 MG TABLET PO (09:09)
[2025-02-01] MEDS: Cariprazine HCl 3 MG CAPSULE PO (09:09)
[2025-02-01] MEDS: Multivitamin TABLET 1 TAB PO (09:09)
[2025-02-01] MEDS: Acetaminophen 325 MG TABLET 650 MG PO ×2 (09:09→16:09)
[2025-02-01 09:10] VITALS: BP 133/78; PULSE 100
[2025-02-01] MEDS: Escitalopram Oxalate 20 MG TABLET PO (09:10)
[2025-02-01] MEDS: Propranolol HCL 10 MG TABLET 30 MG PO ×2 (09:10→20:36)
[2025-02-01] MEDS: Empagliflozin 25 MG TABLET PO (09:11)
[2025-02-01] MEDS: OXcarbazepine 300 MG TABLET PO ×2 (09:11→20:36)
--- NOTE | 2025-02-01 12:34 | P.PNPSI_ITS ---
Subjective Subjective Date of Service: 02/01/25 Reason For Visit: depression Subjective Notes: Conditional Voluntary Healthcare Proxy: No Guardianship: No Medical Problems Affecting Mental Status: No Interim History: Tolerating med changes he reports. Active in milieu and with peers. Denies SI,HI, AH,VH. Agrees with plan to transition to respite prior to going to [place] with his family. Medication Compliance: Yes Side effects from medications: No Attending Groups: Yes Review of Systems Acute medical concerns: No Review of Systems Review of Systems Denies Mental Status Exam Mental Status Exam Patient Appearance: Appropriate Patient Orientation: Person, Place, Time and Situation Level of Consciousness: Alert Patient Behavior: Talkative and Good Eye Contact Mood Description: Cheerful and Anxious Affect Description: Anxious Patient Cognition Impaired: No Ability to Follow Directions: Good Speech Pattern: Spontaneous Speech and Pressured (mildly, at times) Memory Description: Intact Hallucinations: None Delusions: Not Present Thought Process: Intact Thought Content: positive for Intact and positive for Perseveration Depressive Symptoms: Increased Anxiety Judgement: Fair Diagnostics Vital Signs (24Hr): Vital Signs - 24 hr 01/31/25 19:49 01/31/25 20:54 02/01/25 09:09 Temperature 97.1 F Pulse Rate 117 H 117 H Blood Pressure 154/93 H 154/93 H 133/75 Pulse Oximetry 97 Oxygen Delivery Method Room Air 02/01/25 09:10 Temperature Pulse Rate 100 Blood Pressure 133/78 Pulse Oximetry Oxygen Delivery Method BMI result Body Mass Index 41.6 Labs 01/18/25 23:20 02/01/25 08:05 Labs: Laboratory Results - last 48 hr 02/01/25 08:05 Creatinine 0.91 Estim Creat Clear Calc 145.5 Estimated GFR > 60 Medications Medications Current Medications Acetaminophen (Acetaminophen 325 Mg Tablet) 650 mg PO Q6H PRN PRN Reason: Headache/Pain, Scale 1-10 Last Admin: 02/01/25 09:09 Dose: 650 mg Al Hydroxide/Mg Hydroxide (Magnesium Hydrox/Alum Hydrox 30 Ml Oral.Susp) 30 ml PO Q6H PRN PRN Reason: Heartburn/Nausea Last Admin: 01/26/25 13:12 Dose: 30 ml Atorvastatin Calcium (Atorvastatin Calcium 40 Mg Tablet) 40 mg PO BEDTIME [facility]AWANDA Last Admin: 01/31/25 20:54 Dose: 40 mg Benztropine Mesylate (Benztropine Mesylate 0.5 Mg Tablet) 0.5 mg PO TID PRN PRN Reason: Extrapyramidal Effects Cariprazine (Cariprazine Hcl 3 Mg Capsule) 3 mg PO DAILY [facility] Last Admin: 02/01/25 09:09 Dose: 3 mg Empagliflozin (Empagliflozin 25 Mg Tablet) 25 mg PO DAILY [facility] Last Admin: 02/01/25 09:11 Dose: 25 mg Escitalopram Oxalate (Escitalopram Oxalate 20 Mg Tablet) 20 mg PO DAILY [facility] Last Admin: 02/01/25 09:10 Dose: 20 mg Fenofibrate (Fenofibrate 54 Mg Tablet) 54 mg PO DAILY [facility] Last Admin: 02/01/25 09:09 Dose: 54 mg Hydroxyzine HCl (Hydroxyzine Hcl 25 Mg Tablet) 25 mg PO Q6H PRN PRN Reason: mild anxiety Last Admin: 01/26/25 13:11 Dose: 25 mg Lisinopril (Lisinopril 10 Mg Tablet) 10 mg PO DAILY [facility]; Protocol Last Admin: 02/01/25 09:09 Dose: 10 mg Magnesium Hydroxide (Milk Of Magnesia 30 Ml Oral.Susp) 30 ml PO DAILY PRN PRN Reason: Constipation Metformin HCl (Metformin Hcl Er 500 Mg Tab.Er.24h) 1,000 mg PO BIDAC [facility] Last Admin: 02/01/25 09:09 Dose: 1,000 mg Multivitamins/Vitamin C (Multivitamin Tablet) 1 tab PO DAILY [facility] Last Admin: 02/01/25 09:09 Dose: 1 tab Nicotine Polacrilex (Nicotine Polacrilex 2 Mg Gum) 4 mg BUCCAL Q2H PRN PRN Reason: Nicotine Cravings Olanzapine (Olanzapine 5 Mg Tablet) 5 mg PO Q4H PRN PRN Reason: agitation, psychosis Last Admin: 01/22/25 21:16 Dose: 5 mg Oxcarbazepine (Oxcarbazepine 300 Mg Tablet) 300 mg PO BID [facility] Last Admin: 02/01/25 09:11 Dose: 300 mg Paliperidone Palmitate (Paliperidone Palmitate 78 Mg/0.5 Ml Syringe) 78 mg IM Q28D [facility] Last Admin: 01/27/25 17:52 Dose: Not Given Propranolol HCl (Propranolol Hcl 10 Mg Tablet) 30 mg PO BID [facility]; Protocol Last Admin: 02/01/25 09:10 Dose: 30 mg Simethicone (Simethicone 80 Mg Tab.Chew) 80 mg PO QIDWMHS PRN PRN Reason: gas relief Sodium Chloride (Sodium Chloride 0.65 % Nasal 44 Ml Sprbtl) 1 spray NOSTRIL-B Q1H PRN PRN Reason: Congestion Trazodone HCl (Trazodone Hcl 50 Mg Tablet) 50 mg PO BEDTIME MRX1 PRN PRN Reason: Insomnia Last Admin: 01/31/25 20:54 Dose: 50 mg Allergies Allergies Allergy/AdvReac Type Severity Reaction Status Date / Time cat dander [CATS] Allergy Unknown RASH Verified 01/18/25 22:47 Assessment & Plan Assessment & Plan (1) PTSD (post-traumatic stress disorder): Status: Acute Code(s): F43.10 - Post-traumatic stress disorder, unspecified (2) Schizoaffective disorder: Status: Acute Code(s): F25.9 - Schizoaffective disorder, unspecified Plan Admit, CV, 15 minute checks Collateral Contact Diagnostics as needed Continue current regime Encourage full milieu Discharge planning 01/21:A1c 10.5, Hospitalist consult, Nutrition consult. Will attempt to order Caplyta for a trial, pt request. 01/22/25- continue treatment plan- 01/23/25- CTP 01/25/25- Sustenna 78 mg IM today (last dose per [facility] 12/22/24. Dosing ordered q3 weeks.) Caplyta 10.5 mg HS to begin on 01/26. Reviewed with pt's father/guardian. 01/28/25-Hospitalist consult- Mgt. of HTN, DM. Vraylar 1.5 mg 01/29 and 01/30. If tolerated, increase Vraylar to 3 mg on 01/31. Decrease PO Invega to 3 mg 01/29; recently started on Vraylar; will continue current regimen 01/30 continue tx plan 01/31 Increase Vraylar to 3mg daily DC PO Invega Benztropine prn Simethacone prn POC BID 02/01 Continue regime/plan Reason for continued inpatient stay Substantial Risk for: rapid decompensation Time Spent With Patient Time: Total time managing care of this patient today ____ minutes.
[2025-02-01 13:45] LABS: Glucose, Whole Blood 224 mg/dL (60-115)
[2025-02-01] MEDS: OLANZapine 5 MG TABLET PO (16:10)
[2025-02-01 20:00] VITALS: BP 139/83; PULSE 110; RESP 16; TEMP 36.3; O2SAT 97
[2025-02-01 20:36] VITALS: BP 139/83; PULSE 110
[2025-02-01] MEDS: Atorvastatin Calcium 40 MG TABLET PO (20:36)
[2025-02-01] MEDS: traZODone HCL 50 MG TABLET PO (22:13)
[2025-02-02 04:49] LABS: Glucose, Whole Blood 342 mg/dL (60-115)
[2025-02-02 08:00] VITALS: BP 135/80; PULSE 104; RESP 16; TEMP 36.6; O2SAT 96
[2025-02-02] MEDS: Empagliflozin 25 MG TABLET PO (08:20)
[2025-02-02] MEDS: Propranolol HCL 10 MG TABLET 30 MG PO ×2 (08:20→21:43)
[2025-02-02] MEDS: OXcarbazepine 300 MG TABLET PO ×2 (08:20→21:43)
[2025-02-02] MEDS: Multivitamin TABLET 1 TAB PO (08:20)
[2025-02-02] MEDS: lisinopriL 10 MG TABLET PO (08:20)
[2025-02-02] MEDS: Cariprazine HCl 3 MG CAPSULE PO (08:20)
[2025-02-02] MEDS: Fenofibrate 54 MG TABLET PO (08:20)
[2025-02-02] MEDS: metFORMIN HCl ER 500 MG TAB.ER.24H 1000 MG PO ×2 (08:20→15:57)
[2025-02-02] MEDS: Escitalopram Oxalate 20 MG TABLET PO (08:20)
[2025-02-02 08:23] LABS: Glucose, Whole Blood 338 mg/dL (60-115)
--- NOTE | 2025-02-02 10:44 | P.PNPSI_ITS ---
Subjective Subjective Date of Service: 02/02/25 Reason For Visit: depression Subjective Notes: Conditional Voluntary Healthcare Proxy: No Guardianship: No Medical Problems Affecting Mental Status: No Interim History: Blood sugar elevations noted by team. Hospitalist consult ordered for ?insulin initiation. Call to update guardian (father). Father asks that pt not be referred to weight mgt as he believes they will encourage surgery and father would like the GLP-1 option. Pt agrees. Team reports a difficult evening 02/01-upset with father, upset with a peer. When discussed, pt appears to have been triggered by this peer. Pt reports yelling and punching the air. I thought they were hiring clients as staff (peer was taking on a staff role and counseling others). Discussed adding back 3 mg Invega for a brief time which he agrees is appropriate. Discussed wanting to increase his time out of programs and doing more independent activities. Medication Compliance: Yes Side effects from medications: Yes (??mood dysregulation) Attending Groups: Yes Review of Systems Acute medical concerns: No Medical Review of Systems: unchanged Review of Systems Review of Systems Denies Mental Status Exam Mental Status Exam Patient Appearance: Appropriate Patient Orientation: Person, Place, Time and Situation Level of Consciousness: Alert Patient Behavior: Talkative and Good Eye Contact Mood Description: Anxious and Labile Affect Description: Anxious Patient Cognition Impaired: No Ability to Follow Directions: Good Speech Pattern: Spontaneous Speech and Pressured (mildly, at times) Memory Description: Intact Hallucinations: None Delusions: Not Present Thought Process: Intact and Racing (mild at times) Thought Content: positive for Intact and positive for Perseveration Depressive Symptoms: Increased Anxiety Judgement: Fair Diagnostics Vital Signs (24Hr): Vital Signs - 24 hr 02/01/25 20:00 02/01/25 20:36 02/02/25 08:00 Temperature 97.4 F 97.8 F Pulse Rate 110 H 110 H 104 H Respiratory Rate 16 16 Blood Pressure 139/83 139/83 135/80 Pulse Oximetry 97 96 BMI result Body Mass Index 41.6 Labs 01/18/25 23:20 02/01/25 08:05 Labs: Laboratory Results - last 48 hr 02/01/25 02/01/25 02/01/25 08:05 13:31 22:19 Creatinine 0.91 Estim Creat Clear Calc 145.5 Estimated GFR > 60 POC Glucose 224 H 342 H 02/02/25 07:55 Creatinine Estim Creat Clear Calc Estimated GFR POC Glucose 338 H Medications Medications Current Medications Acetaminophen (Acetaminophen 325 Mg Tablet) 650 mg PO Q6H PRN PRN Reason: Headache/Pain, Scale 1-10 Last Admin: 02/01/25 16:09 Dose: 650 mg Al Hydroxide/Mg Hydroxide (Magnesium Hydrox/Alum Hydrox 30 Ml Oral.Susp) 30 ml PO Q6H PRN PRN Reason: Heartburn/Nausea Last Admin: 01/26/25 13:12 Dose: 30 ml Atorvastatin Calcium (Atorvastatin Calcium 40 Mg Tablet) 40 mg PO BEDTIME [facility] Last Admin: 02/01/25 20:36 Dose: 40 mg Benztropine Mesylate (Benztropine Mesylate 0.5 Mg Tablet) 0.5 mg PO TID PRN PRN Reason: Extrapyramidal Effects Cariprazine (Cariprazine Hcl 3 Mg Capsule) 3 mg PO DAILY [facility] Last Admin: 02/02/25 08:20 Dose: 3 mg Empagliflozin (Empagliflozin 25 Mg Tablet) 25 mg PO DAILY [facility] Last Admin: 02/02/25 08:20 Dose: 25 mg Escitalopram Oxalate (Escitalopram Oxalate 20 Mg Tablet) 20 mg PO DAILY [facility] Last Admin: 02/02/25 08:20 Dose: 20 mg Fenofibrate (Fenofibrate 54 Mg Tablet) 54 mg PO DAILY [facility] Last Admin: 02/02/25 08:20 Dose: 54 mg Hydroxyzine HCl (Hydroxyzine Hcl 25 Mg Tablet) 25 mg PO Q6H PRN PRN Reason: mild anxiety Last Admin: 01/26/25 13:11 Dose: 25 mg Lisinopril (Lisinopril 10 Mg Tablet) 10 mg PO DAILY [facility]; Protocol Last Admin: 02/02/25 08:20 Dose: 10 mg Magnesium Hydroxide (Milk Of Magnesia 30 Ml Oral.Susp) 30 ml PO DAILY PRN PRN Reason: Constipation Metformin HCl (Metformin Hcl Er 500 Mg Tab.Er.24h) 1,000 mg PO BIDAC [facility] Last Admin: 02/02/25 08:20 Dose: 1,000 mg Multivitamins/Vitamin C (Multivitamin Tablet) 1 tab PO DAILY [facility] Last Admin: 02/02/25 08:20 Dose: 1 tab Nicotine Polacrilex (Nicotine Polacrilex 2 Mg Gum) 4 mg BUCCAL Q2H PRN PRN Reason: Nicotine Cravings Olanzapine (Olanzapine 5 Mg Tablet) 5 mg PO Q4H PRN PRN Reason: agitation, psychosis Last Admin: 02/01/25 16:10 Dose: 5 mg Oxcarbazepine (Oxcarbazepine 300 Mg Tablet) 300 mg PO BID [facility] Last Admin: 02/02/25 08:20 Dose: 300 mg Paliperidone Palmitate (Paliperidone Palmitate 78 Mg/0.5 Ml Syringe) 78 mg IM Q28D [facility] Last Admin: 01/27/25 17:52 Dose: Not Given Propranolol HCl (Propranolol Hcl 10 Mg Tablet) 30 mg PO BID [facility]; Protocol Last Admin: 02/02/25 08:20 Dose: 30 mg Simethicone (Simethicone 80 Mg Tab.Chew) 80 mg PO QIDWMHS PRN PRN Reason: gas relief Sodium Chloride (Sodium Chloride 0.65 % Nasal 44 Ml Sprbtl) 1 spray NOSTRIL-B Q1H PRN PRN Reason: Congestion Trazodone HCl (Trazodone Hcl 50 Mg Tablet) 50 mg PO BEDTIME MRX1 PRN PRN Reason: Insomnia Last Admin: 02/01/25 22:13 Dose: 50 mg Allergies Allergies Allergy/AdvReac Type Severity Reaction Status Date / Time cat dander [CATS] Allergy Unknown RASH Verified 01/18/25 22:47 Assessment & Plan Assessment & Plan (1) PTSD (post-traumatic stress disorder): Status: Acute Code(s): F43.10 - Post-traumatic stress disorder, unspecified (2) Schizoaffective disorder: Status: Acute Code(s): F25.9 - Schizoaffective disorder, unspecified Plan Admit, CV, 15 minute checks Collateral Contact Diagnostics as needed Continue current regime Encourage full milieu Discharge planning 01/21:A1c 10.5, Hospitalist consult, Nutrition consult. Will attempt to order Caplyta for a trial, pt request. 01/22/25- continue treatment plan- 01/23/25- CTP 01/25/25- Sustenna 78 mg IM today (last dose per [facility] 12/22/24. Dosing ordered q3 weeks.) Caplyta 10.5 mg HS to begin on 01/26. Reviewed with pt's father/guardian. 01/28/25-Hospitalist consult- Mgt. of HTN, DM. Vraylar 1.5 mg 01/29 and 01/30. If tolerated, increase Vraylar to 3 mg on 01/31. Decrease PO Invega to 3 mg 01/29; recently started on Vraylar; will continue current regimen 01/30 continue tx plan 01/31 Increase Vraylar to 3mg daily DC PO Invega Benztropine prn Simethacone prn POC BID 02/02 Invega 3 mg a.m. Team will begin looking at respite options Reason for continued inpatient stay Substantial Risk for: rapid decompensation Time Spent With Patient Time: Total time managing care of this patient today ____ minutes.
--- NOTE | 2025-02-02 11:10 | PM.EVENT ---
Event Note Date of Service: 02/02/25 Event Note: Consult requested for hyperglycemia. Last 3 BGs 224/342/336. On MTF XR 1g bid + Jardiance 25mg once daily. Will start Lantus 20 units qhs. Please notify us if BGs consistently >200 Time Spent With Patient Time: Total time managing care of this patient today ____ minutes.
[2025-02-02] MEDS: Paliperidone ER 3 MG TAB.ER.24 PO (15:57)
[2025-02-02 19:54] VITALS: BP 133/71; PULSE 110; RESP 16; TEMP 36.1; O2SAT 95
[2025-02-02 21:43] VITALS: BP 121/83; PULSE 98
[2025-02-02] MEDS: OLANZapine 5 MG TABLET PO (21:43)
[2025-02-02] MEDS: traZODone HCL 50 MG TABLET PO (21:43)
[2025-02-02] MEDS: Atorvastatin Calcium 40 MG TABLET PO (21:43)
[2025-02-02] MEDS: Insulin Glargine,Hum.rec.anlog 100 UNIT/ML 10 ML VIAL 20 UNIT SUBCUT (21:44)
[2025-02-03 04:23] LABS: Glucose, Whole Blood 298 mg/dL (60-115)
[2025-02-03 08:10] LABS: Glucose, Whole Blood 224 mg/dL (60-115)
[2025-02-03 09:01] VITALS: BP 137/76; PULSE 105
[2025-02-03] MEDS: Escitalopram Oxalate 20 MG TABLET PO (09:01)
[2025-02-03] MEDS: Propranolol HCL 10 MG TABLET 30 MG PO (09:01)
[2025-02-03] MEDS: Paliperidone ER 3 MG TAB.ER.24 PO (09:01)
[2025-02-03] MEDS: metFORMIN HCl ER 500 MG TAB.ER.24H 1000 MG PO (09:03)
[2025-02-03] MEDS: Cariprazine HCl 3 MG CAPSULE PO (09:03)
[2025-02-03 09:04] VITALS: BP 137/76
[2025-02-03] MEDS: Empagliflozin 25 MG TABLET PO (09:04)
[2025-02-03] MEDS: OXcarbazepine 300 MG TABLET PO (09:04)
[2025-02-03] MEDS: lisinopriL 10 MG TABLET PO (09:04)
[2025-02-03] MEDS: Fenofibrate 54 MG TABLET PO (09:05)
[2025-02-03] MEDS: Multivitamin TABLET 1 TAB PO (09:29)
[2025-02-03 09:54] VITALS: BP 137/76; PULSE 105; TEMP 36.3; O2SAT 97
[2025-02-03] MEDS: Insulin Lispro 100 UNIT/ML 3 ML VIAL SUBCUT (10:24)
--- NOTE | 2025-02-03 14:47 | PC.NURSE ---
Amos left a discontinued prescription Of Caplyta 10.5 mg #14- directed to waste by prescriber Camille Rm wasted with Samanta Peace RN.
--- NOTE | 2025-02-06 18:46 | P.DS_ITS ---
DS: Providers Provider Date of Service: 02/03/25 Date of admission: 01/19/25 13:21 Date of discharge: 02/03/25 Primary care physician: Keanu Reyes MD Admitting clinician: Lizett Stokes Attending physician on admission: Hussein Brewer Consults: 01/28/25 18:20 Consult to Hospitalist Routine Comment: Consulting Provider: [facility] Hospitalists Reason For Exam: HTN, DM mgt- GLP-1?, Guardians request 02/02/25 09:17 Consult to Hospitalist Routine Comment: Consulting Provider: [facility] Hospitalists Reason For Exam: High blood sugars; ?Insulin Attending physician on discharge: Hussein Brewer Discharging clinician: Lizett Stokes DS: Diagnosis Discharge Diagnosis (1) PTSD (post-traumatic stress disorder): Status: Acute (2) Schizoaffective disorder: Status: Acute DS: Medications Discharge Medications Home Medications: Previous Rx's ?Medication ?Instructions ?Recorded acetaminophen 325 mg tablet 650 mg (2 x 325 mg) PO Q6H PRN 02/03/25 Headache/Pain, Scale 1-10 #90 tabs atorvastatin 40 mg tablet 40 mg PO BEDTIME #30 tabs 02/03/25 benztropine 0.5 mg tablet 0.5 mg PO TID PRN Extrapyramidal 02/03/25 Effects #90 tabs cariprazine 3 mg capsule (Vraylar) 3 mg PO DAILY #30 caps 02/03/25 citalopram 40 mg tablet 40 mg PO DAILY #30 tabs 02/03/25 empagliflozin 25 mg tablet 25 mg PO DAILY #30 tabs 02/03/25 (Jardiance) fenofibrate 54 mg tablet 54 mg PO DAILY #30 tabs 02/03/25 hydroxyzine HCl 25 mg tablet 25 mg PO Q6H PRN mild anxiety #30 02/03/25 tabs insulin glargine 100 unit/mL (3 20 unit (0.2 mL) subcut BEDTIME 02/03/25 mL) subcutaneous pen #15 mL lisinopril 10 mg tablet 10 mg PO DAILY #30 tabs 02/03/25 metformin 500 mg tablet,extended 1,000 mg (2 x 500 mg) PO BIDWMEAL 02/03/25 release 24 hr #120 tabs multivitamin (Daily-Mathieu tablet) 1 tab PO DAILY #30 tabs 02/03/25 oxcarbazepine 300 mg tablet 300 mg PO BID #60 tabs 02/03/25 paliperidone 3 mg tablet,extended 3 mg PO DAILY #30 tabs 02/03/25 release 24 hr (Invega) paliperidone palmitate 78 mg/0.5 78 mg (0.5 mL) IM Q21D #0.5 mL 02/03/25 mL intramuscular syringe (Invega Sustenna) propranolol 10 mg tablet 30 mg (3 x 10 mg) PO BID #180 tabs 02/03/25 simethicone 80 mg chewable tablet 80 mg PO QIDWMHS PRN gas relief 02/03/25 (Gas Relief (simethicone)) #120 tabs sodium chloride 0.65 % nasal spray 1 spray intranasal Q1H PRN 02/03/25 aerosol ([place] Nasal) Congestion #88 mL trazodone 50 mg tablet 50 mg PO BEDTIME MRX1 PRN Insomnia 02/03/25 #60 tabs Mental Status Exam Mental Status Exam Patient Appearance: Appropriate Patient Orientation: Person, Place, Time and Situation Level of Consciousness: Alert Patient Behavior: Talkative and Good Eye Contact Mood Description: Anxious and Labile Affect Description: Anxious Patient Cognition Impaired: No Ability to Follow Directions: Good Speech Pattern: Spontaneous Speech and Pressured (mildly, at times) Memory Description: Intact Hallucinations: None Delusions: Not Present Thought Process: Intact and Racing (mild at times) Thought Content: positive for Intact and positive for Perseveration Depressive Symptoms: Increased Anxiety Judgement: Fair Data Data Completed and Pending Completed studies during hospitalization [Text1]: 02/01/25 02/01/25 02/01/25 08:05 13:31 22:19 Creatinine 0.91 Estim Creat Clear Calc 145.5 Estimated GFR > 60 POC Glucose 224 H 342 H 02/02/25 02/02/25 02/03/25 07:55 21:26 07:36 Creatinine Estim Creat Clear Calc Estimated GFR POC Glucose 338 H 298 H 224 H DS: Summary Hospital Course Hospital Course: Admission to adult psychiatry for exacerbation of PTSD, schizoaffective disorder. Pt with SI. Precipitant he reports is being rejected by an county attorney practice as he wants to file abuse charges from a past incident. Unfortunately, the practice he approached is a specialty practice which does not specialize in this issue. Pt felt he hit a end, and felt hopeless. Medications were evaluated and adjusted with guardian input. Vraylar initiated, tolerated. HTN and hyperglycemia addressed by internal medicine with initiation of insulin. Pt was a very active participant in the milieu and worked diligently on strengthening coping skills and exploring his perspectives. Pt to transfer to respite upon discharge and plans to travel with his family to [place] to see his grandmother who is in hospice on 02/12/25. Status at Discharge Functional status at discharge: independent ambulation Overall status at discharge: patient is progressing back to baseline Time Spent with Patient Time attestation: Total time managing care of this patient today ____ minutes. Time spent: Less than 30 minutes Discharge Plan Discharge Anticipated Discharge Date/Time: 02/03/25 12:00 Patient Disposition: Xfer Other Discharge Diagnosis: PTSD Schizoaffective Disorder Referrals: Naima Schrader Visiting RN [Other] - 1 Week (fax [phone] Visiting RN will restart at D/C. ) Keanu Reyes MD [Primary Care Provider] - 1 Week Discharge Medications: New acetaminophen 325 mg Tablet 650 mg PO Q6H PRN (Reason: Headache/Pain, Scale 1-10) Qty: 90 0RF benztropine 0.5 mg Tablet 0.5 mg PO TID PRN (Reason: Extrapyramidal Effects) Qty: 90 0RF Vraylar 3 mg Capsule 3 mg PO DAILY Qty: 30 0RF hydroxyzine HCl 25 mg Tablet 25 mg PO Q6H PRN (Reason: mild anxiety) Qty: 30 0RF paliperidone [Invega] 3 mg Tablet Extended Release 24 Hr 3 mg PO DAILY Qty: 30 0RF trazodone 50 mg Tablet 50 mg PO BEDTIME MRX1 PRN (Reason: Insomnia) Qty: 60 0RF simethicone [Gas Relief (simethicone)] 80 mg Tablet,Chewable 80 mg PO QIDWMHS PRN (Reason: gas relief) Qty: 120 0RF [place] Nasal 0.65 % Aerosol,[place] 1 spray intranasal Q1H PRN (Reason: Congestion) Qty: 88 0RF multivitamin [Daily-Mathieu] Tablet 1 tab PO DAILY Qty: 30 0RF insulin glargine 100 unit/mL (3 mL) insulin pen 20 unit subcut BEDTIME Qty: 15 0RF Invega Sustenna 78 mg/0.5 mL syringe 78 mg IM Q21D Qty: 0.5 0RF propranolol 10 mg tablet 30 mg PO BID Qty: 180 0RF Continued atorvastatin 40 mg tablet 40 mg PO BEDTIME Qty: 30 0RF citalopram 40 mg tablet 40 mg PO DAILY Qty: 30 0RF oxcarbazepine 300 mg tablet 300 mg PO BID Qty: 60 0RF lisinopril 10 mg tablet 10 mg PO DAILY Qty: 30 0RF metformin 500 mg tablet extended release 24 hr 1,000 mg PO BIDWMEAL Qty: 120 0RF fenofibrate 54 mg tablet 54 mg PO DAILY Qty: 30 0RF Jardiance 25 mg tablet 25 mg PO DAILY Qty: 30 0RF Discontinued propranolol 10 mg tablet 30 mg PO DAILY paliperidone 6 mg tablet extended release 24 hr 7 mg PO DAILY Invega Sustenna 78 mg/0.5 mL syringe 78 mg IM Q28D Discharge Orders: Discharge Order (Routine); Ordered 02/03/25 Ordered By: Lizett Stokes Diet: Advance to usual diet Activity on Discharge: As tolerated Stand Alone Forms: Patient Portal Discharge page, Community Support Print Language: Lebanese Care Plan Goals: Mood and Behavioral Stabilization Health Concerns: Mood and Behavioral Stabilization Plan of Treatment: Admit to respite today. Attend scheduled appointments Take medications as directed Continue your work in your programs Call/Return as needed Assessment: Amos is in agreement with this transition plan No SI,HI,AH,VH No sx of acute francy, psychosis Guardians are notified by team and are in agreement. Discharge Date/Time: 02/03/25 13:15
== END 2025-02-03 13:15 | disposition other institution (70) | DRG 885 ==
LOC: HO.ED 01-19 04:04 → HO.PM5 01-19 13:28
PROVIDERS: Admitting Provider Clinical Nurse Specialist Psychiatric/Mental Health, Adult; Emergency Provider Emergency Medicine; PCP Internal Medicine; Visit Provider Clinical Nurse Specialist Psychiatric/Mental Health, Adult
DX: F25.9 Schizoaffective disorder, unspecified (principal); R45.851 Suicidal ideations; F43.10 Post-traumatic stress disorder, unspecified; E11.65 Type 2 diabetes mellitus with hyperglycemia; I10 Essential (primary) hypertension; Z79.4 Long term (current) use of insulin; Z79.84 Long term (current) use of oral hypoglycemic drugs; Z79.899 Other long term (current) drug therapy
CPT/HCPCS: 36415; 80053; 80061; 80307; 81001; 82565; 82607; 82746; 82947; 83036; 83735; 84439; 84443; 85025; 93005; 99285; S9485

== ENCOUNTER → 2025-01-19 09:50 | Outpatient (BNV) | payer MEDICARE, MEDICAID, SELFPAY | PROVIDERS: Admitting Provider Clinical Nurse Specialist Psychiatric/Mental Health, Adult; Emergency Provider Emergency Medicine; PCP Internal Medicine; Visit Provider Internal Medicine | DX: R00.0 Tachycardia, unspecified (principal) | CPT/HCPCS: 93010 ==

== ENCOUNTER → 2025-01-19 13:21 | Outpatient (BNV) | payer MEDICARE, MEDICAID, SELFPAY | PROVIDERS: Admitting Provider Clinical Nurse Specialist Psychiatric/Mental Health, Adult; Emergency Provider Emergency Medicine; PCP Internal Medicine; Visit Provider Clinical Nurse Specialist Psychiatric/Mental Health, Adult | DX: F43.10 Post-traumatic stress disorder, unspecified (principal); F25.9 Schizoaffective disorder, unspecified | CPT/HCPCS: 90792 ==

== ENCOUNTER 2025-10-27 20:25 | Emergency (ER) | payer MEDICARE, MEDICAID, SELFPAY ==
--- NOTE | ~2025-10-27 | CT_ITS ---
CLINICAL HISTORY: hematuria, no flank pain CT abdomen and pelvis with contrast Comparison: None provided Findings: LIMITED CHEST: Lung bases are clear. LIVER: No focal liver lesion. BILIARY: Cholelithiasis. PANCREAS: No mass or ductal dilatation. SPLEEN: No splenomegaly. KIDNEYS: No hydronephrosis or radiopaque stone. ADRENALS: No nodule. VASCULAR: No aneurysm. RETROPERITONEUM: No lymphadenopathy or mass. BOWEL/MESENTERY: No evidence of obstruction. No free fluid or air. Normal appendix. ABDOMINAL WALL: No mass or significant abnormality. URINARY BLADDER: Severe circumferential bladder wall thickening asymmetric at the bladder dome. PELVIC NODES: No pelvic lymphadenopathy. PELVIC ORGANS: Normal for age. BONES: No acute fracture. OTHER: Negative. IMPRESSION: Circumferential bladder wall thickening asymmetrically pronounced at the bladder dome. This may represent cystitis, however neoplasm is not excluded. Consider evaluation with cystoscopy. This document has been electronically signed by: Susan Parr MD on 10/28/2025 00:58:30
[2025-10-27 20:41] VITALS: BP 154/90; BP 160/98; PULSE 102; PULSE 97; RESP 18; TEMP 36.9; O2SAT 97; BMI 36.9
--- OUTSIDE RECORDS SUMMARY | 2025-10-27 21:01 | XMS_ITS | Clinical Summary ---
Author Organization 175 [facility] Address [address] [place] [address] Phone Care Team Providers Care Pipelayer Name Role Phone Keanu Reyes MD Primary Care Provider [phone] Allergies Active Allergy Reactions Criticality Noted Date Comments Lactose 10/16/2023 Other 08/08/2022 MARIA C [id number] LATEX (DUO) Other Reaction(s): Rash/Dermatitis Pollen Extracts 06/15/2020 Medications blood glucose control high,low (FreeStyle Control) solution To check glucose level 2 Active blood-glucose meter kit 1 Kit by Does not apply route See Admin Instructions. 3 Active blood sugar diagnostic (FreeStyle Lite Strips) test strip USE 1 STRIP BY IN VITRO ROUTE 2 TIMES DAILY. 4 Active hydrOXYzine HCL (ATARAX) 25 mg tablet Take 1 Tablet by mouth. Psychiatrist refills meds Active OXcarbazepine (TRILEPTAL) 300 mg tablet Take 1 Tablet by mouth 2 times daily. Psychiatrist refills meds Active paliperidone palmitate (Invega Sustenna) 78 mg/0.5 mL syringe injection Inject into the muscle every 30 days. Inject into the muscle every 30 days. Psychiatrist refills meds Active propranoloL (INDERAL) 10 mg tablet Take 3 Tablets by mouth 2 times daily. Psychiatrist refills meds Active silver sulfADIAZINE (Silvadene) 1 % creamIndications :Ingrowing nail Apply topically 1 (one) time each day. 50 g 5 026 Active sertraline (ZOLOFT) 100 mg tablet Take 1 tablet (100 mg total) by mouth 1 (one) time each day. 5 Active paliperidone (INVEGA) 6 mg 24 hr tablet Take 1 tablet (6 mg total) by mouth 1 (one) time each day in the morning. 5 Active Vraylar 3 mg capsule Take 1 capsule (3 mg total) by mouth 1 (one) time each day. 5 Active traZODone (DESYREL) 50 mg tablet Take 1 tablet (50 mg total) by mouth at bedtime. 5 Active simethicone (MYLICON) 80 mg chewable tablet Chew 1 tablet (80 mg total) every 6 (six) hours if needed. 5 Active Concerta 27 mg ER tablet Take 1 tablet (27 mg total) by mouth 1 (one) time each day in the morning. 5 Active methylphenidate (RITALIN) 5 mg tablet Take 1 tablet (5 mg total) by mouth 1 (one) time each day. 5 Active pen needle, diabetic (BD Ultra-Fine Madeline Pen Needle) 32 gauge x 32 needle Use daily with insulin 100 each 5 5 Active freestyle (FreeStyle Lancets) 28 gauge lancets To check glucose level twice daily 200 each 5 5 Active insulin glargine,hum.rec .anlog (Basaglar KwikPen U-100 Insulin) 100 unit/mL (3 mL) injection pen Inject 26 Units under the skin 1 (one) time each day. 15 mL 5 5 Active atorvastatin (LIPITOR) 40 mg tablet Take 1 tablet (40 mg total) by mouth 1 (one) time each day. 90 each 1 5 026 Active tirzepatide (Mounjaro) 2.5 mg/0.5 mL injectionIndicat ions:Type 2 diabetes mellitus without complication, without long-term current use of insulin (CMS/HCC V24, CMS/HCC V28) Use 2.5mg once weekly 2 mL 2 5 Active cholecalciferol (VITAMIN D-3) 50 mcg (2,000 unit) tablet Take 1 tablet (2,000 Units total) by mouth 1 (one) time each day. 90 tablet 1 5 Active lisinopriL (PRINIVIL,ZESTRI L) 10 mg tablet Take 1 tablet (10 mg total) by mouth 1 (one) time each day. 90 tablet 1 5 Active empagliflozin (JARDIANCE) 25 mg tablet Take 1 tablet (25 mg total) by mouth 1 (one) time each day. 30 tablet 5 5 Active metFORMIN XR (GLUCOPHAGE-XR) 500 mg 24 hr tablet Take 1 tablet (500 mg total) by mouth 1 (one) time each day. Do not crush, chew, or split. 30 each 5 5 Active fenofibrate (LOFIBRA) 54 mg tablet Take 1 tablet (54 mg total) by mouth 1 (one) time each day. 90 tablet 5 Active Active Problems Problem Noted Date Diagnosed Date Primary hypertension 08/10/2024 Snoring 09/10/2022 Type 2 diabetes mellitus wit hout complication, without long-term current use of insulin 09/10/2022 Mixed hyperlipidemia 08/08/2022 Type 2 diabetes mellitus wit h hyperglycemia, with long-term current use of insulin 06/27/2022 Hydrocele in adult 01/09/2022 OCD (obsessive compulsive disorder) 02/04/2020 PTSD (post-traumatic stress disorder) 02/04/2020 Anxiety 10/28/2019 Depression 10/28/2019 Chronic hyponatremia 10/12/2019 Heartburn 10/12/2019 Morbid obesity 10/12/2019 Schizoaffective disorder 10/12/2019 Encounters Date Type Department Care Team Description 09/13/2025 8:30 AM EST Lab Draw Station - [address] Type 2 diabetes mellitus without complication, without long-term current use of insulin ([facility] V24, [facility] V28) 09/13/2025 Results Follow-Up [facility] - [address] [phone] Sharron Martinez MD 07/28/2025 11:00 AM EDT Office Visit [facility] - [address] [phone] Sharron Martinez MD Type 2 diabetes mellitus without complication, without long-term current use of insulin ([facility] V24, [facility] V28) 07/28/2025 Telephone Adult Medicine [address] [phone] Keanu Reyes MD from Last 3 Months Immunizations Immunization Administration Dates Next Due DTP 04/03/1989, 6,1984,1983,1984 Hepatitis B Pediatric (Enger ix B; Recombivax HB) to less than 20 yo 04/24/1998,05/23/1997,04/20/1997 Influenza Quadravalent, MDCK , 0.5ml, preservative free (Flucelvax) 6mo and older 09/30/2020 Influenza trivalent, 0.5mL, preservative free (Fluarix; FluLaval; Fluzone) ages 6mo and older (Afluria) 3 years and older 07/22/2024,08/13/2021 Influenza trivalent, with preservative (Fluzone; Afluria) 6mo and older 08/26/2019 MMR, measles mumps and rubel la Live (Priorix; M-M-R II) 12mo and older 06/26/1993,08/13/1985 OPV 04/03/1989, 6,1984,1983 Td Tetanus diptheria (Tdvax) 7yo and older 06/27/1999 Tdap Tetanus diptheria acell ular pertussis (Boostrix; Adacel) 7yo and older 07/22/2024,02/17/2012 Surgical History Surgery Date Site/Laterality Comments KNEE SURGERY Left PROCEDURE: HISTORICAL KNEE SURGERY; COMMENT: as a child Medical History Medical History Date Comments Anxiety 10/28/2019 DX:Anxiety Chronic hyponatremia 10/12/2019 DX:Chronic hyponatremia Depression 10/28/2019 DX:Depression Heartburn 10/12/2019 DX:Heartburn Morbid obesity with BMI of 4 0.0-44.9, adult ([facility] V24, [facility] V28) 10/12/2019 DX:Morbid obesity wit h BMI of 40.0-44.9, adult (HCC) Schizoaffective disorder (CM S/HCC V24, CMS/HCC V28) 10/12/2019 DX:Schizoaffective disorder (HCC) Family History Medical History Relation Name Comments Multiple sclerosis Father Relation Name Status Comments Father Alive Maternal Grandfather Maternal Grandmother Mother Alive Paternal Grandfather Paternal Grandmother Alive Sister Alive Social History Tobacco Use Types Packs/Day Years Used Date Smoking Tobacco: Never Smokeless Tobacco: Never Tobacco Cessation:Counseling Given: Not Answered Alcohol Use Standard Drinks/Week Comments Yes 0 (1 standard drink = 0.6 oz pur e alcohol) Sex and Gender Information Value Date Recorded Sex Assigned at Not on file Legal Sex Male 6:56 AM EST Gender Identity Not on file Sexual Orientation Not on file Last Filed Vital Signs Vital Sign Reading Time Taken Comments Blood Pressure 111/79 07/28/2025 11:03 AM EDT Pulse 81 07/28/2025 11:03 AM EDT Temperature 35.7 C (96.3 F) 03/08/2025 2:13 PM EDT Respiratory Rate 15 07/28/2025 11:03 AM EDT Oxygen Saturation 98% 03/08/2025 2:13 PM EDT Inhaled Oxygen Concentration - - Weight 129 kg (284 lb) 07/28/2025 11:03 AM EDT Height 175.3 cm (5' 9 ) 07/28/2025 11:03 AM EDT Body Mass Index 41.94 07/28/2025 11:03 AM EDT Plan of Treatment Upcoming Encounters Date Type Department Care Team (Late st Contact Info) Description 11/07/2025 3:00 PM EST Office Visit Adult Medicine [address] [phone] Keanu Reyes MD [address] [place] [address] 11/18/2025 10:40 AM EST Office Visit [address] [phone] Tea Rodriguez PA [address] [place] [address] Health Maintenance Due Date Last Done Comments Drug Screen 1984 Non-Opioid Controlled Substance Agreement 1984 Diabetes: Annual Foot Exam 01/30/1994 Diabetes: Annual Retina Eye Exam 01/30/1994 Pneumococcal Vaccine: Pediatrics (0 to 5 Years) and At-Risk Patients (6 to 49 Years) (1 of 2 - PCV) 01/30/2003 HPV Vaccines (1 - 3-dose SCDM series) 01/30/2011 Medicare Annual Wellness Visit 10/19/2022 Social Influencers of Health Screening 10/19/2022 Depression Screening 11/10/2024 07/22/2024 Diabetes: Annual Urine Albumin-Creatinine Ratio (uACR) 06/22/2025 06/22/2024 Diabetes: Blood Sugar Control Test (HGBA1C) 03/13/2026 09/13/2025, 06/06/2025, 02/11/2025, Additional history exists Diabetes: Annual GFR (Glomerular Filtration Rate) 09/13/2026 09/13/2025, 06/06/2025, 10/28/2024, Additional history exists Hypertension/CHF/CAD Annual BMP Blood Test 09/13/2026 09/13/2025, 06/06/2025, 10/28/2024, Additional history exists Cholesterol Screening (Lipid Panel) 06/06/2030 06/06/2025, 02/11/2025, 06/22/2024, Additional history exists DTaP,Tdap,and Td Vaccines (9 - Td or Tdap) 07/22/2034 07/22/2024, 02/17/2012, 06/27/1999, Additional history exists RSV Immunization Adult Patients (1 - 1-dose 75+ series) 01/30/2059 IPV Vaccines Completed 04/03/1989, 06/11, 1984, Additional history exists MMR Vaccines Completed 06/26/1993, 08/13/1985 Hepatitis B Vaccines Completed 04/24/1998, 05/23/1997, 04/20/1997 HIV Screening Completed 06/23/2020 Hepatitis C Screening Completed 06/23/2020 COVID-19 Vaccine Completed 07/25/2025, , 09/19/2022, Additional history exists Influenza Vaccine Completed 07/25/2025, , 08/22/2023, Additional history exists HIB Vaccines Aged Out No longer eligi ble based on patient's age to complete this topic Hepatitis A Vaccines Aged Out No long er eligible based on patient's age to complete this topic Meningococcal ACWY Vaccine Aged Out N o longer eligible based on patient's age to complete this topic Meningococcal B Vaccine Aged Out No l onger eligible based on patient's age to complete this topic RSV Immunization Patients Under 20 months Aged Out No longer eligible based on patient's age to complete this topic Varicella Vaccines Aged Out No longer eligible based on patient's age to complete this topic Procedures Procedure Name Priority Date/Time Associated Diagnosis Comments BUN Routine 09/13/2025 8:33 AM EST Type 2 diabetes mellitus without complication, without long-term current use of insulin ([facility] V24, CMS/[facility] V28) CREATININE, SERUM Routine 09/13/2025 8:3 3 AM EST Type 2 diabetes mellitus without complication, without long-term current use of insulin ([facility]/HCC V24, CMS/HCC V28) HEMOGLOBIN A1C Routine 09/13/2025 8:33 AM EST Type 2 diabetes mellitus without complication, without long-term current use of insulin (CMS/HCC V24, CMS/HCC V28) LIPID PANEL WITH REFLEX TO DIRECT LDL Routine 06/06/2025 8:44 AM EDT Uncontrolled type 2 diabetes mellitus with hyperglycemia (CMS/HCC V24, CMS/HCC V28) Mixed hyperlipidemia Morbid obesity (CMS/HCC V24, CMS/HCC V28) Primary hypertension DEPRESSION SCREENING Routine 07/22/2024 URINE ALBUMIN CREATININE RATIO Routine 06/22/2024 HEPATITIS C SCREENING Routine 06/23/2020 HIV SCREENING Routine 06/23/2020 from Last 3 Months or Most Recently Relevant to Health Maintenance Results * Creatinine (09/13/2025 8:33 AM EST) Creatinine 0.97 0.70 - 1.30 mg/dL LAB CHEMISTRY METHOD 09/13/2025 11:[address] [facility] eGFR 101 >=60 mL/min/1. 73m2 LAB CHEMISTRY METHOD 09/13/2025 11:[address] [facility] Comment:Calculation based on the Chronic Kidney Disease Epidemiology Collaboration (CKD-EPI) equation refit without adjustment for race. Blood Venous blood specimen / Unknown Venipuncture / Unknown 09/13/2025 8:33 AM EST 09/13/2025 8:33 AM EST us Sharron Martinez MD LAB BLOOD ORDERABLES Final Resul t Performing Organization Address City/[facility]/ZIP Co de Phone Number [facility] [address] [place] [address], [place] [phone] * BUN (09/13/2025 8:33 AM EST) Pathologist [facility] BUN 12 5 - 25 mg/dL LAB CHEMISTRY METHOD 09/13/2025 11:[address] [facility] Blood Venous blood specimen / Unknown Venipuncture / Unknown 09/13/2025 8:33 AM EST 09/13/2025 8:33 AM EST us Sharron Martinez MD LAB BLOOD ORDERABLES Final Resul t [facility] [address] [place] [address], [place] [phone] * (ABNORMAL) Hemoglobin A1c (09/13/2025 8:33 AM EST) Pathologist [facility] Hemoglobin A1C 8.0(H) <6.5 % LAB CHEMISTRY METHOD 09/13/2025 2:[address] [facility] Mean Bld Glu Estim. 183 mg/dL LAB CHEMISTRY METHOD 09/13/2025 2:[address] [facility] Blood Venous blood specimen / Unknown Venipuncture / Unknown 09/13/2025 8:33 AM EST 09/13/2025 8:33 AM EST us Sharron Martinez MD LAB BLOOD ORDERABLES Final Resul t [facility] [address] [place] [address], [place] [phone] * (ABNORMAL) Lipid panel with reflex to direct LDL (06/06/2025 8:44 AM EDT) Cholesterol 135 0 - 200 mg/dL LAB CHEMISTRY METHOD 06/06/2025 11:[address] [facility] Triglycerides 303(H) 0 - 150 mg/dL LAB CHEMISTRY METHOD 06/06/2025 11:[address] [facility] HDL 30(L) >=40 mg/dL LAB CHEMISTRY METHOD 06/06/2025 11:[address] [facility] LDL Calculated 44 0 - 100 mg/dL LAB CHEMISTRY METHOD 06/06/2025 11:[address] [facility] VLDL Cholesterol Rob 60.6 mg/dL LAB CHEMISTRY METHOD 06/06/2025 11:[address] [facility] Non HDL Chol. (LDL+VLDL) 105 <145 mg/dL LAB CHEMISTRY METHOD 06/06/2025 11:[address] [facility] Chol/HDL Ratio 4.5(H) 0.0 - 4.4 LAB CHEMISTRY METHOD 06/06/2025 11:[address] [facility] Blood Venous blood specimen / Unknown Venipuncture / Unknown 06/06/2025 8:44 AM EDT 06/06/2025 8:44 AM EDT Tea BELL LAB BLOOD ORDERABLES Final Resul t [facility] ([facility]) [facility] [address] [place] [address], [place] [phone] * Depression Screening (07/22/2024) Pathologist [facility] Depression Screening Abstracted Historical Provider HEALTH MAINTENANCE Final Result * Urine Albumin Creatinine Ratio (06/22/2024) Pathologist [facility] Urine Albumin Creatinine Ratio Abstracted Historical Provider HEALTH MAINTENANCE Final Result * HIV Screening (06/23/2020) [facility] HIV Screening Abstracted [facility] Provider HEALTH MAINTENANCE Final Result * Hepatitis C Screening (06/23/2020) Pathologist [facility] Hepatitis C Screening Abstracted Historical Provider HEALTH MAINTENANCE Final Result from Last 3 Months or Most Recently Relevant to Health Maintenance Insurance MEDICARE [place]ICAID [place] Care Teams Pipelayer Relationship Specialty Start Date End Date Keanu Reyes MD [address] [place] [address] PCP - General Internal Medicine 05/08/22
--- OUTSIDE RECORDS SUMMARY | 2025-10-27 21:01 | XMS_ITS | Clinical Summary ---
Author Organization [facility] Address [address] [address] Phone Care Team Providers Care Promotions Executive Producer Name Role Phone Pcp, Unknown Primary Care Provider Unavailabl e Allergies No known active allergies Medications citalopram (CELEXA) 20 MG tablet 1 tab(s) Active paliperidone palmitate (INVEGA SUSTENNA) 117 mg/0.75 mL Syrg IM injection syringe 0.75 ml Active propranolol (INDERAL) 10 MG immediate release tablet 3 tabs tid Acti ve sodium chloride 1 gram tablet 1 tab(s) Active OXcarbazepine (TRILEPTAL) 600 MG tablet 1 tab(s) Active THERAPEUTIC-M 9 mg iron-400 mcg Tab TAKE 1 TABLET BY MOUTH EVERY DAY 30 tablet 5 12/24/2017 Active VITAMIN D3 2,000 unit capsuleIndicati ons:Vitamin deficiency TAKE 1 CAPSULE BY MOUTH EVERY DAY 30 capsule 11 07/28/2019 Active Active Problems Problem Noted Date Diagnosed Date Gastroesophageal reflux disease without esophagi tis 10/14/2017 Anxiety disorder 10/04/2017 GERD (gastroesophageal reflux disease) 7 Hyponatremia 10/04/2017 Mixed hyperlipidemia 10/04/2017 Non morbid obesity 10/04/2017 Posttraumatic stress disorder 10/04/2017 Schizoaffective disorder 10/04/2017 Immunizations Immunization Administration Dates Next Due DTP 04/03/1989, 6,1984,1983,1984 Hepatitis B 04/24/1998,05/23/1997,04/20/1997 Influenza Recombinant Cam valent Preservative Free IM 08/26/2019 MMR 06/26/1993,08/13/1985 PPD Test 05/25/2013 Polio - OPV 04/03/1989, 6,1984,1983 Td (adult) 5 Lf Tetanus Toxo id, PF, Adsorbed 06/27/1999 Tdap 02/17/2012 Social History Tobacco Use Types Packs/Day Years Used Date Smoking Tobacco: Never Smokeless Tobacco: Never Education Answer Date Recorded Are you interested in more education? Not on tete e 03/07/2023 Are you concerned about learning? Not on file 03/07/2023 No 03/07/2023 No 03/07/2023 Digital Access Answer Date Recorded No 04/07/2023 No 04/07/2023 Reliable internet access at home? Not on file 04/07/2023 Device with a working camera? Not on file Sex and Gender Information Value Date Recorded Sex Assigned at Not on file Legal Sex Male 9:17 PM EDT Gender Identity Not on file Sexual Orientation Not on file Last Filed Vital Signs Vital Sign Reading Time Taken Comments Blood Pressure 112/66 09/21/2019 8:29 AM EST Pulse 76 09/21/2019 8:29 AM EST Temperature 36.9 C (98.5 F) 09/21/2019 8:29 AM EST Respiratory Rate - - Oxygen Saturation 98% 09/21/2019 8:29 AM EST Inhaled Oxygen Concentration - - Weight 128.1 kg (282 lb 6.4 oz) 09/21/2019 8:29 AM EST Height 172.7 cm (5' 8 ) 09/21/2019 8:29 AM EST Body Mass Index 42.94 09/21/2019 8:29 AM EST Plan of Treatment Health Maintenance Due Date Last Done Comments HEPATITIS C SCREENING 01/30/2002 HIV ONE-TIME SCREENING (18-65 YEARS) 01/30/2002 DEPRESSION SCREENING 08/26/2020 08/26/2019 LIPID PANEL 08/26/2020 08/26/2019, 08/10, 10/15/2016, Additional history exists Adult Td,Tdap Booster 02/16/2022 02/17/2012, 999 INFLUENZA VACCINE (#1) 2025 , 09/30/2020, 09/30/2020, Additional history exists COVID-19 VACCINE ( season) 2025 10/10/2021, 03/21/2021, 02/21/2021 SMOKING STATUS SCREENING (Once After 26 Yrs) Completed 09/21/2019 HEPATITIS A VACCINES Aged Out No long er eligible based on patient's age to complete this topic HIB VACCINES Aged Out No longer eligi ble based on patient's age to complete this topic MENINGOCOCCAL VACCINES (ACWY) Aged Out No longer eligible based on patient's age to complete this topic MENINGOCOCCAL VACCINES (B) Aged Out N o longer eligible based on patient's age to complete this topic PNEUMOCOCCAL VACCINES (0-49 years) Aged Out No longer eligible based on patient's age to complete this topic Medical Devices Not on file Procedures Procedure Name Priority Date/Time Associated Diagnosis Comments LIPID PANEL Routine 08/26/2019 4:15 PM EDT Hyperlipidemia from Last 3 Months or Most Recently Relevant to Health Maintenance Results * (ABNORMAL) Lipid panel (08/26/2019 4:15 PM EDT) HDL 31 mg/dL [facility] Comment: Interpretation <40 mg/dL: Low HDL cholesterol (major risk factor for CHD) Greater than or equal to 60 mg/dL: High HDL cholesterol ( negative risk factor for CHD) HDL - cholesterol is affected by a number of factors, e.g. smoking, excerise, hormones, sex and age. CHOLESTEROL 207 0 - 240 mg/dL [facility] TRIGLYCERIDES 383(H) 30 - 160 mg/dL [facility] LDL 99 50 - 129 mg/dL [facility] Comment: LDL levels in terms of risk for coronary heart disease: <100 mg/dL: Optimal 100-129 mg/dL: Near or above optimal 130-159 mg/dL: Borderline high 160-189 mg/dL: High >190 mg/dL: Very High CARDIAC RISK RATIO 6.7(H) 3.4 - 5.0 C [facility] Blood 08/26/2019 4:15 PM EDT 08/26/2019 4:18 PM EDT us Warren Ochoa MD LAB BLOOD BKR ORDERABLES Salma dela cruz Result [facility] [address] [place] [address] from Last 3 Months or Most Recently Relevant to Health Maintenance Insurance MEDICARE PART A & B [place] & [place] HEALTH MEDICARE PART A & [place] & B Member Subscriber Plan / Payer (Ef fective 2010-Present) Name:Amos Ch Member ID:[id number] Relation to Subscriber:Self Name:Amos Ch Subscriber ID:[id number] Payer ID:[id number] Group ID:Not on file Type:Medicare Address[address] [facility] [address] & B [place] [id number] MEDICARE PART A & B [facility] Care Teams Promotions Executive Producer Relationship Specialty Start Date End Date Pcp, Unknown PCP - General 05/15/22 Additional Source Comments The information contained in this document represents components of the legal health record. It is not the complete legal health record.[facility]
--- OUTSIDE RECORDS SUMMARY | 2025-10-27 21:01 | XMS_ITS | Encounter Summary ---
Author Organization [facility] Address [address] [place] [address] Care Team Providers Care Paper Bundler Name Role Phone Keanu Reyes MD Primary Care Provider [phone] Encounter Details Date Type Department Care Team ([facility] Contact Info) Description 09/13/2025 Results Follow-Up [address] [phone] Sharron Martinez MD [address] [place] [id number] Social History Tobacco Use Types Packs/Day Years Used Date Smoking Tobacco: Never Smokeless Tobacco: Never Alcohol Use Standard Drinks/Week Comments Yes 0 (1 standard drink = 0.6 oz pur e alcohol) Sex and Gender Information Value Date Recorded Sex Assigned at Not on file Legal Sex Male 6:56 AM EST Gender Identity Not on file Sexual Orientation Not on file documented as of this encounter Plan of Treatment Upcoming Encounters Date Type Department Care Team ([facility] Contact Info) Description 11/07/2025 3:00 PM EST Office Visit Adult Medicine [address] [phone] Keanu Reyes MD [address] [place] [address] 11/18/2025 10:40 AM EST Office Visit [address] [phone] Tea Rodriguez PA [address] [place] [address] documented as of this encounter Visit Diagnoses Not on filedocumented in this encounter Care Teams Paper Bundler Relationship Specialty Start Date End Date Keanu Reyes MD [address] [place] [address] PCP - General Internal Medicine 05/08/22 documented as of this encounter
--- OUTSIDE RECORDS SUMMARY | 2025-10-27 21:01 | XMS_ITS ---
Author Name [facility] Organization Unknown Care Team Organization Name Specialty Phone Email Start Date End Da te [facility] Tea Rodriguez Primary Care 11/18/2022 06/28/20 24
--- OUTSIDE RECORDS SUMMARY | 2025-10-27 21:01 | XMS_ITS | Encounter Summary ---
Author Organization [facility] Address [address] [place] [address] Care Team Providers Care Inletter Name Role Phone Keanu Reyes MD Primary Care Provider [phone] Encounter Details Date Type Department Care Team (Late st Contact Info) Description 05/24/2025 Nurse Triage Adult Medicine [address] [phone] Keanu Reyes MD [address] [place] [address] Social History Tobacco Use Types Packs/Day Years [...] on file documented as of this encounter Progress Notes * Calli Shearer RN - 05/30/2025 12:59 PM EDT Left vm for pt to return my call. * Calli Shearer RN - 05/30/2025 12:42 PM EDT Message titled incomplete urination, no content to the message documented in this encounter Plan of Treatment Upcoming Encounters Date Type Department Care Team (Late st Contact Info) Description 11/07/2025 3:00 PM EST Office Visit Adult Medicine [address] [phone] Keanu Reyes MD [address] [place] [address] 11/18/2025 10:40 AM EST Office Visit [address] [phone] Tea Rodriguez PA [address] [place] [address] documented as of this encounter Visit Diagnoses Not on filedocumented in this encounter Care Teams Inletter Relationship Specialty Start Date End Date Keanu Reyes MD [address] [place] [address] PCP - General Internal Medicine 05/08/22 documented as of this encounter
--- NOTE | 2025-10-27 21:23 | ED_ITS ---
HPI - Male Genitourinary General Chief complaint: Urogenital-Male Stated complaint: Urinating blood Time Seen by Provider: 10/27/25 21:06 Source: patient Mode of arrival: ambulatory Limitations: no limitations History of Present Illness ED Provider: Dr. Jaonne Hernandez HPI Narrative: Patient comes to the emergency room complaining of hematuria. Patient states that he does not have any fever chills, he does have some dysuria, no flank pain, no abdominal pain. Patient states that 45 minutes prior to urinating brownish colored urine, he was using a sex toy/ vibrator over his penis. Patient states that he did not feel any pain, did not insert anything into the urethra. Did not hear or feel any snapping in the urethra. Patient denies penile pain or discharge. Related Data Previous Rx's ?Medication ?Instructions ?Recorded acetaminophen 325 mg tablet 650 mg (2 x 325 mg) PO Q6H PRN 02/03/25 Headache/Pain, Scale 1-10 #90 tabs atorvastatin 40 mg tablet 40 mg PO BEDTIME #30 tabs benztropine 0.5 mg tablet 0.5 mg PO TID PRN Extrapyram idal 02/03/25 Effects #90 tabs cariprazine 3 mg capsule (Vraylar) 3 mg PO DAILY #30 c aps 02/03/25 citalopram 40 mg tablet 40 mg PO DAILY #30 tabs 01/09 06/03 empagliflozin 25 mg tablet 25 mg PO DAILY #30 tabs (Jardiance) fenofibrate 54 mg tablet 54 mg PO DAILY #30 tabs 01/09 06/03 hydroxyzine HCl 25 mg tablet 25 mg PO Q6H PRN mild anx iety #30 02/03/25 tabs insulin glargine 100 unit/mL (3 20 unit (0.2 mL) subcu t BEDTIME 02/03/25 mL) subcutaneous pen #15 mL lisinopril 10 mg tablet 10 mg PO DAILY #30 tabs 01/09 06/03 metformin 500 mg tablet,extended 1,000 mg (2 x 500 mg) PO BIDWMEAL 02/03/25 release 24 hr #120 tabs multivitamin (Daily-Mathieu tablet) 1 tab PO DAILY #30 ta bs 02/03/25 oxcarbazepine 300 mg tablet 300 mg PO BID #60 tabs paliperidone 3 mg tablet,extended 3 mg PO DAILY #30 ta bs 02/03/25 release 24 hr (Invega) paliperidone palmitate 78 mg/0.5 78 mg (0.5 mL) IM Q21 D #0.5 mL 02/03/25 mL intramuscular syringe (Invega Sustenna) propranolol 10 mg tablet 30 mg (3 x 10 mg) PO BID #18 0 tabs 02/03/25 simethicone 80 mg chewable tablet 80 mg PO QIDWMHS PRN gas relief 02/03/25 (Gas Relief (simethicone)) #120 tabs sodium chloride 0.65 % nasal spray 1 spray intranasal Q1H PRN 02/03/25 aerosol (Deep Sea Nasal) Congestion #88 mL trazodone 50 mg tablet 50 mg PO BEDTIME MRX1 PRN In somnia 02/03/25 #60 tabs levofloxacin 500 mg tablet 500 mg PO DAILY #9 tabs phenazopyridine 100 mg tablet 100 mg PO TID 6 doses #6 tabs 10/28/25 Allergies Allergy/AdvReac Type Severity Reaction Status Date / Time cat dander (CATS) Allergy Unknown RASH Verified 10/27/25 20:45 Review of Systems 2 Review of Systems: Constitutional : No Weight loss, No Fever, No Chills, No Night Sweats, No Fatigue, No Malaise ENT/Mouth : No Hearing loss, No Ear Pain, No Nasal Congestion, No Sinus Pain, No Hoarseness, No sore throat, No Rhinorrhea, No Swallowing Difficulty Eyes: No Eye Pain, No Swelling, No Redness, No Foreign Body, No Discharge, No Vision Changes Cardiovascular : No Chest Pain, No SOB, No Dyspnea on Exertion, No Orthopnea, No Edema, No Palpitations Respiratory : No Cough, No Sputum, No Wheezing, No Smoke Exposure, No Dyspnea Gastrointestinal : No Nausea, No Vomiting, No Diarrhea, No Constipation, No abdominal Pain, No Hematochezia, No Melena Genitourinary : no irregular bleeding, Complaining of mild dysuria, complaining of months of having 2.7 heart rate to urinate, complaining of brownish looking urine, No Urinary Incontinence, No Urgency, No Flank Pain, No Urinary Flow Changes, No Hesitancy Musculoskeletal : No joint pain, No Myalgias, No Joint Swelling Skin : No Skin Lesions, No rash Neuro : No Weakness, No Numbness, No Paresthesias, No Loss of Consciousness, No Dizziness, No Headache Psych : No Anxiety/Panic, No Depression, No SI/HI/AH/VH, No Social Issues, Heme/Lymph: No Bruising, No Bleeding,No Lymphadenopathy Endocrine : No Polyuria, No Polydipsia, No Temperature Intolerance [facility] Past Medical History Medical History Schizoaffective disorder Schizoaffective disorder PTSD (post-traumatic stress disorder) Social History Social History Household Members: None Housing: Apartment Do you presently have visiting nurse or other home services: Yes (Visiting nurse who visits daily, administers am meds, packs pm meds) Alcohol intake: current Alcohol intake frequency: holidays/special occasions only Patient Tobacco Use Status: Never used Tobacco Substance Use Type: Other Advance Directives: No Advance Directives Information Provided: Yes service: No Sexual orientation: Don't Know Physical Exam 2 Exam: Exam: Appearance: Alert. Oriented X3. No acute distress. Eyes: Pupils equal, round and reactive to light. ENT: Pharynx normal. Neck: Normal inspection. Neck supple. No lymph nodes noted. No crepitus CVS: Normal heart rate and rhythm. Pulses normal. Normal S1 and S2 Respiratory: No respiratory distress. Breath sounds normal. No Wheezing. No rales Abdomen: Soft and nontender. No rigidity. No distention. no CVA tenderness urogenital: Normal uncircumcised penis, no lesions, no blood at the urethral meatus, no signs of injury, no ecchymosis, no inguinal pain, no testicular discoloration pain or ecchymosis Skin: Skin warm and dry. Normal skin color. Normal skin turgor. Extremities: No lower extremity edema. No Lacerations. No Rash Neuro: Oriented X 3. No motor deficit. No sensory deficit. Moving all extremities. No slurred speech. CN 2 through 12 grossly intact Psych: calm, cooperative, normal affect Vital Signs: Vital Signs: Last Vital Signs Temp 98.4 F 10/27/25 22:54 Pulse 105 H 10/27/25 22:54 Resp 17 10/27/25 22:54 BP 119/76 10/27/25 22:54 Pulse Ox 104 H 10/27/25 22:54 O2 Del Method Room Air 10/27/25 22:54 BMI result Body Mass Index 36.9 Course Course Course Narrative: all of patient's labs, urinalysis pending. CT scan pending Medications Administered Discontinued Medications Generic Name Dose Route Start Last Admin Trade Name Thienq PRN Reason Stop Dose Admin Iohexol 100 ml 10/28/25 00:28 10/28/25 00:33 Iohexol 350 Mg/Ml 100 Ml Infus..Btl IV 10/28/25 00:29 100 ml ONCE ONE Administration Levofloxacin 750 mg 10/27/25 22:56 10/27/25 23:28 Levofloxacin 750 Mg Tablet PO 10/27/25 22:57 750 mg ONCE ONE Administration Phenazopyridine HCl 100 mg 10/27/25 22:56 10/27/25 23:27 Phenazopyridine Hcl 100 Mg Tablet PO 10/27/25 22:57 100 mg ONCE ONE Administration Medical Decision Making Medical Decision Making [facility] Narrative: my interpretation of labs: Patient's white blood cell count 12.7, rest of hematology no significant acute abnormality. Chemistry within normal limits, glucose 152, patient known to be diabetic LFTs within normal limits urinalysis positive for UTI. CT scan does not show any kidney stones. . Patient has financial bladder thickening, asymmetrically pronounced at the bladder dome, likely cystitis, neoplasm can not be excluded. Discussed the above-mentioned with the patient, patient is to follow-up PCP, patient may need repeat CT scan versus cystoscopy upon resolution of symptoms patient was given the 1st dose of levofloxacin in the emergency department. Differential Diagnosis Differential Diagnoses: The differential diagnosis associated with the presentation includes ( UTI, neoplasm, urogenital injury) Admission/Observation Consideration of admission/observation: Escalation of care including admission/observation considered ( given patient's presentation and labs: Observation was considered) Lab Data [facility] Lab Attestation statement: I reviewed the patient's lab results. 10/27/25 21:34 10/27/25 21:34 Labs: Lab Results 10/27/25 10/27/25 Range/Units 21:14 21:34 WBC 12.7 H (4.8-10.8) X10*3/uL RBC 5.21 (4.60-5.80) X10*6/uL Hgb 15.1 (14.0-18.0) g/dl Hct 43.2 (42.0-52.0) % MCV 82.9 (80.0-98.0) fL MCH 29.0 (27.0-33.0) pg MCHC 35.0 (31.0-36.0) g/dl RDW 12.8 (11.0-16.0) % Plt Count 273 (160-400) X10*3/uL MPV 9.3 L (9.4-12.4) fL Immature Gran % (Auto) 1.2 H (0.0-0.4) % Neut % (Auto) 70.2 (45-73) % Lymph % (Auto) 18.4 L (20-40) % [place] % (Auto) 7.7 (2-11) % Eos % (Auto) 2.2 (0-4) % Baso % (Auto) 0.3 (0-2) % Lymph # (Auto) 2.3 (1.2-4.9) X10*3/uL [place] # (Auto) 1.0 (0.1-1.2) X10*3/uL Eos # (Auto) 0.3 (0.0-0.4) X10*3/uL Baso # (Auto) 0.0 (0.0-0.2) X10*3/uL Abs Immat Gran (auto) 0.15 H (0.00-0.03) X10*3/uL Absolute Neuts (auto) 8.9 H (2.0-8.3) x10*3/uL Absolute Nucleated RBC 0.000 (0.0-0.012) X10*3/uL Nucleated RBC % (auto) 0.0 (0.0-0.2) /100WBC Sodium 136 (135-145) mmol/L Potassium 3.8 (3.3-5.1) mmol/L Chloride 104 (96-108) mmol/L Carbon Dioxide 20 L (22-29) mmol/L Anion Gap 16 (12-20) BUN 13 (9-16) mg/dL Creatinine 0.68 (0.5-1.4) mg/dL Estim Creat Clear Calc 199.6 Estimated GFR > 60 Random Glucose 152 H (60-115) mg/dL Calcium 9.5 (8.4-10.2) mg/dL Total Bilirubin 0.4 (0.0-1.0) mg/dL Direct Bilirubin 0.2 (0.0-0.5) mg/dL AST 18 (5-37) U/L ALT 18 (0-40) U/L Alkaline Phosphatase 82 (39-117) U/L Total Protein 7.0 (6.5-8.0) g/dL Albumin 4.5 (3.5-5.0) g/dL Urine Color BROWN Urine Appearance Turbid Urine pH 6.0 (5.0-9.0) Ur Specific [place] 1.025 (1.005-1.025) Urine Protein 100 (2+) H (Neg-Trace) mg/dL Urine Glucose (UA) >=1000 H (Negative) mg/dL Urine Ketones Trace (Negative) mg/dL Urine Blood Large (3+) H (Negative) Urine Nitrite Positive H (Negative) Ur Leukocyte Esterase Trace H (Negative) Urine RBC >20 H (0-2) /HPF Urine WBC >50 H (0-5) /HPF Ur Squamous Epith Cells 0-2 (0-2) /HPF Urine Bacteria Trace (None Seen) Hyaline Casts 0-2 (0-2) /LPF Independent Interpretation I performed an independent interpretation of an: CT Scan Radiology Impression Discussion of test interpretation with radiology: I have reviewed the radiologist's reading. Radiologist Impression: Findings: LIMITED CHEST: Lung bases are clear. LIVER: No focal liver lesion. BILIARY: Cholelithiasis. PANCREAS: No mass or ductal dilatation. SPLEEN: No splenomegaly. KIDNEYS: No hydronephrosis or radiopaque stone. ADRENALS: No nodule. VASCULAR: No aneurysm. RETROPERITONEUM: No lymphadenopathy or mass. BOWEL/MESENTERY: No evidence of obstruction. No free fluid or air. Normal appendix. ABDOMINAL WALL: No mass or significant abnormality. URINARY BLADDER: Severe circumferential bladder wall thickening asymmetric at the bladder dome. PELVIC NODES: No pelvic lymphadenopathy. PELVIC ORGANS: Normal for age. BONES: No acute fracture. OTHER: Negative. IMPRESSION: Circumferential bladder wall thickening asymmetrically pronounced at the bladder dome. This may represent cystitis, however neoplasm is not excluded. Consider evaluation with cystoscopy. Discharge Plan Discharge Clinical Impression: Acute UTI Patient Disposition: Home, Self-Care Instructions: Urinary Tract Infection in Men (ED) Additional Instructions: your CT scan shows an abnormal bladder wall thickening. This is likely secondary to infection. However, please follow-up with your primary care physician, you may need a repeat CAT scan or a referral to Urology for a cystoscopy. Please follow-up with your primary care physician tomorrow. If you have any worsening or new symptoms, please return to the emergency room or call 911 Prescriptions: New levofloxacin 500 mg tablet 500 mg PO DAILY Qty: 9 0RF phenazopyridine 100 mg tablet 100 mg PO TID Qty: 6 0RF No Action acetaminophen 325 mg Tablet 650 mg PO Q6H PRN (Reason: Headache/Pain, Scale 1-10) Qty: 90 0RF benztropine 0.5 mg Tablet 0.5 mg PO TID PRN (Reason: Extrapyramidal Effects) Qty: 90 0RF Vraylar 3 mg Capsule 3 mg PO DAILY Qty: 30 0RF hydroxyzine HCl 25 mg Tablet 25 mg PO Q6H PRN (Reason: mild anxiety) Qty: 30 0RF paliperidone [Invega] 3 mg Tablet Extended Release 24 Hr 3 mg PO DAILY Qty: 30 0RF trazodone 50 mg Tablet 50 mg PO BEDTIME MRX1 PRN (Reason: Insomnia) Qty: 60 0RF simethicone [Gas Relief (simethicone)] 80 mg Tablet,Chewable 80 mg PO QIDWMHS PRN (Reason: gas relief) Qty: 120 0RF Deep Sea Nasal 0.65 % Aerosol,[place] 1 spray intranasal Q1H PRN (Reason: Congestion) Qty: 88 0RF multivitamin [Daily-Mathieu] Tablet 1 tab PO DAILY Qty: 30 0RF atorvastatin 40 mg tablet 40 mg PO BEDTIME Qty: 30 0RF citalopram 40 mg tablet 40 mg PO DAILY Qty: 30 0RF oxcarbazepine 300 mg tablet 300 mg PO BID Qty: 60 0RF lisinopril 10 mg tablet 10 mg PO DAILY Qty: 30 0RF metformin 500 mg tablet extended release 24 hr 1,000 mg PO BIDWMEAL Qty: 120 0RF fenofibrate 54 mg tablet 54 mg PO DAILY Qty: 30 0RF Jardiance 25 mg tablet 25 mg PO DAILY Qty: 30 0RF insulin glargine 100 unit/mL (3 mL) insulin pen 20 unit subcut BEDTIME Qty: 15 0RF Invega Sustenna 78 mg/0.5 mL syringe 78 mg IM Q21D Qty: 0.5 0RF propranolol 10 mg tablet 30 mg PO BID Qty: 180 0RF Stand Alone Forms: Work/School Release Print Language: French
[2025-10-27 21:25] LABS: Appearance Urine Turbid; Glucose Urine UA >=1000 mg/dL (Negative); PH 6.0 (5.0-9.0); Specific Gravity - Urine 1.025 (1.005-1.025); UMIC TRIGGER UACC YES
[2025-10-27 21:32] LABS: UACC Culture Trigger YES
[2025-10-27 21:38] LABS: MANUAL DIFF FLAG NO
[2025-10-27 21:40] LABS: Hematocrit 43.2 % (42.0-52.0); Hemoglobin 15.1 g/dl (14.0-18.0); Imm Gran Abs Auto 0.15 X10*3/uL (0.00-0.03); Imm Gran Pct Auto 1.2 % (0.0-0.4); Lymphocytes Absolute Auto 2.3 X10*3/uL (1.2-4.9); Mean Corpuscular HGB Conc 35.0 g/dl (31.0-36.0); Mean Corpuscular Hemoglobin 29.0 pg (27.0-33.0); Mean Corpuscular Volume 82.9 fL (80.0-98.0); NRBC Abs Auto 0.000 X10*3/uL (0.0-0.012); NRBC Pct Auto 0.0 /100WBC (0.0-0.2); Platelet Count 273 X10*3/uL (160-400); Red Blood Count 5.21 X10*6/uL (4.60-5.80); White Blood Count 12.7 X10*3/uL (4.8-10.8)
--- NOTE | 2025-10-27 21:41 | PC.NURSE ---
pt reports using a vibrator/ sex toy hat may have damaged his urethra. Pt reports pain 8/10 and increases with urination, bladder scan reveals 72 mL, pt reports urinating prior to arrival. Pt ab to provider urine sample, blood red with clots noted.
[2025-10-27 21:59] LABS: Alanine Aminotransferase 18 U/L (0-40); Albumin Level 4.5 g/dL (3.5-5.0); Alkaline Phosphatase 82 U/L (39-117); Anion Gap 16 (12-20); Aspartate Amino Transferase 18 U/L (5-37); Blood Urea Nitrogen 13 mg/dL (9-16); Calcium 9.5 mg/dL (8.4-10.2); Carbon Dioxide 20 mmol/L (22-29); Chloride 104 mmol/L (96-108); Creatinine Clr Calc Pharmacy 199.6; Estimated Glomerular Filt Rate > 60; Potassium 3.8 mmol/L (3.3-5.1); Sodium 136 mmol/L (135-145); Total Protein 7.0 g/dL (6.5-8.0)
[2025-10-27 22:54] VITALS: BP 119/76; PULSE 105; RESP 17; TEMP 36.9; O2SAT 104
--- NOTE | 2025-10-27 23:16 | PC.NURSE ---
blood cultures being drawn before medication administration.
--- NOTE | 2025-10-27 23:30 | PC.NURSE ---
pt medicated per MAR
[2025-10-28] MEDS: iohexoL 350 MG/ML 100 ML INFUS..BTL IV (00:33)
[2025-10-28 01:32] VITALS: BP 126/76; PULSE 99; RESP 18; TEMP 36.6; O2SAT 97
== END 2025-10-28 01:39 | disposition home or self-care (01) ==
PROVIDERS: Emergency Provider Emergency Medicine; PCP Internal Medicine
DX: N39.0 Urinary tract infection, site not specified (principal); R93.5 Abnormal findings on diagnostic imaging of other abdominal regions, including retroperitoneum
CPT/HCPCS: 36415; 74177; 80048; 80076; 81001; 85025; 87040; 87086; 87088; 87186; 99285; Q9967

== ENCOUNTER → 2025-10-28 00:02 | Outpatient (BNV) | payer MEDICARE, MEDICAID, SELFPAY | PROVIDERS: Emergency Provider Emergency Medicine; PCP Internal Medicine; Visit Provider Student in an Organized Health Care Education/Training Program | DX: N32.89 Other specified disorders of bladder (principal) | CPT/HCPCS: 74177 ==